=== PATIENT | male | born 1960 | race Caucasian/White ===

== ENCOUNTER 2016-06-21 16:23 | Emergency (ER) | payer OTHER ==
[~2016-06-21] VITALS: Wt 90.7 kg
[~2016-06-21 16:23] MED LIST: ASPIR-LOX325 MG PO; ASPIRIN ADULT L81 M1 PO; ATENOLOL25 MG PO; ATORVASTATIN CA40 M1 PO; B12,B-12,B 12500 MC1 PO; BACTROBAN2% TP; CLEOCIN HCL150 MG PO; COMPAZINE10 MG PO; FLAGYL500 MG; GLUCOTROL XL2.5 MG PO; HYDROCODONE BIT1 T11 PO; KEFLEX500 MG PO; LISINOPRIL20 MG PO; METFORMIN1000 MG PO; METFORMIN500 MG PO; NEURONTIN300 MG PO; PLAVIX75 MG PO; TRICOR48 MG PO; VIBRAMYCIN100 MG PO; VICODIN 5/500 505 MG PO; VISTARIL50 MG PO; ZANTAC150 MG PO; ZOCOR20 MG PO; ZOFRAN ODT4 MG SL; ZOFRAN4 MG PO
[2016-06-21 17:14] LABS: BASO % 0.3 % (0.0-1.0); EOS # 0.1 10*3/uL (0.0-0.4); EOS % 1.8 % (1.0-4.0); HEMOGLOBIN 14.1 g/dl (14.0-18.0); LYMPH # 1.8 10*3/uL (1.3-4.4); LYMPH % 28.6 % (27.0-41.0); MEAN CELL VOLUME 97.9 fl (80.0-94.0); MEAN CORPUSCULAR HGB 32.9 pg (27.0-31.0); MEAN CORPUSCULAR HGB CONC 33.6 g/dl (33.0-37.0); MONO # 0.6 10*3/uL (0.1-1.0); MONO % 9.6 % (3.0-9.0); NEUT # 3.7 10*3/uL (2.3-7.9); NEUT % 59.4 % (47.0-73.0); PLATELET COUNT AUTOMATED 187 10*3/uL (130-400); RED BLOOD COUNT 4.29 10*6/uL (4.50-5.90); RED CELL DISTRI WIDTH 12.4 % (0-14.5); WHITE BLOOD COUNT 6.2 10*3/uL (4.8-10.8)
[2016-06-21 17:32] LABS: ALBUMIN 3.7 gm/dl (3.1-4.5); ALKALINE PHOSPHATASE 92 U/L (45-117); BILIRUBIN, TOTAL 0.5 mg/dl (0.2-1.0); BUN 9 mg/dl (7-24); CARBON DIOXIDE 28 mmol/L (21-32); CHLORIDE 108 mmol/L (98-107); EST GLOM FILT AFRICAN AMERICAN > 60 ml/min; GLUCOSE 142 mg/dL (65-99); SGOT/AST 10 IU/L (3-35); SGPT/ALT 28 U/L (12-78); SODIUM 143 mmol/L (136-145)
[2016-06-21] MEDS ORDERED: AUGMENTIN 875875 MG PO (17:57)
[2016-06-21] MEDS ORDERED: PREDNISONE20 M1 PO (17:57)
[2016-07-16] MEDS ORDERED: TAMIFLU 75MG CA75 MG PO (06:55)
[2016-07-16] MEDS ORDERED: Nystatin Cream15 GM T (06:55)
[2016-07-16] MEDS ORDERED: NORCO 5-325 TA1 EACH PO (06:57)
[2016-07-19] MEDS ORDERED: ZITHROMAX500 MG PO (20:50)
== END 2016-06-21 18:04 | disposition home or self-care (01) ==
LOC: ED 16:23
PROVIDERS: Nurse Practitioner Family
DX: J40 Bronchitis, not specified as acute or chronic (principal); F17.200 Nicotine dependence, unspecified, uncomplicated; E11.9 Type 2 diabetes mellitus without complications; Z95.5 Presence of coronary angioplasty implant and graft; Z90.49 Acquired absence of other specified parts of digestive tract; Z79.82 Long term (current) use of aspirin

== ENCOUNTER 2016-08-29 18:19 | Inpatient (IN) | payer OTHER ==
[~2016-08-29] VITALS: Ht 198.1 cm; Wt 88.6 kg
--- NOTE | ~2016-08-29 | O ---
[place], [place] OPERATIVE NOTE NAME: [facility]Y DOBBINS [facility] [id number] UNIT #: [id number] ROOM: [facility] DOCTOR: JET KHAN DPM BIRTHDATE: [birth year] DOS: 08/31/2016 PREOPERATIVE DIAGNOSES: Abscess, first right MPJ, right foot with possible osteomyelitis. POSTOPERATIVE DIAGNOSES: Abscess, first right MPJ, right foot with possible osteomyelitis. Pending pathology. PROCEDURE: Incision and drainage, first right MPJ with bone biopsy. SURGEON: Jet Khan DPM. BUTTER FAT TESTER: None. SPECIMENS: Bone from proximal phalanx and tibial sesamoid, right foot. PACKIN.5 inch plain packing. BLOOD LOSS: Approximately 10 mL. ANESTHESIA: LMAC. PROCEDURE IN DETAIL: The patient was brought to the operating room, placed on the operating table in supine position. Anesthesia administered per Anesthesia Department. Local infiltration of 10 mL with 0.5% Marcaine plain was utilized for local block. The right lower extremity was prepped and draped in usual aseptic manner. No tourniquet was utilized during the procedure. There was an abscess noted to the plantar first right MPJ. There was an ulceration, which probed down to bone. A [place] elevator was inserted and a sinus tract was noted to extend distally along the plantar aspect of the right hallux. This was incised with a 15 blade to and through subcutaneous tissue level down to the bone. There was also a superficial pocket of purulent drainage noted at the distal most aspect of the incision, which was debrided with a rongeur. Upon incision of the first MPJ, there was noted to be an abscess with purulent bloody drainage which was cultured and sent for Gram stain, aerobic, anaerobic, acid fast and fungal cultures. The incision was also extended proximally approximately 1.5 cm with a 15 blade down to the level of the bone. At this time, Jamshidi was utilized to obtain samples of the proximal phalanx of the right hallux and tibial sesamoid. Bone was sent for bone cultures including Gram stain, aerobic, anaerobic, acid fast and fungal cultures and separately to pathology to rule out osteomyelitis. The area was then copiously flushed with sterile saline with pulse irrigation. Next, a sterile compression dressing consisting of 0.5 inch plain packing, wet-to-dry dressing including 4 x 4s, ABD, Kerlix and Alvaro bandage. The patient tolerated the procedures and anesthesia well and left the OR with vital signs stable and neurovascular status intact. Capillary refill time was noted to be less than 1 second to all digits of the right foot. The patient will return to the nursing unit, resume previous orders. Orders were written to reinforce the dressing as needed, elevate the right leg, no weightbearing right leg. Apply ice 30 minutes per hour behind right knee while awake x 2 days. Resume orders per internal medicine, [place], [place] OPERATIVE NOTE NAME: DIONY DOBBINS UNIT #: [id number] ROOM: [facility] DOCTOR: JET KHAN DPM BIRTHDATE: [birth year] antibiotics per Infectious Disease. resumed per discussion of internal medicine starting tomorrow. The patient will be seen for dressing change tomorrow by Dr. Mon. JET KHAN DPM CM:OPRECORD:OPERATIVE NOTE 1533 05 JET KHAN DPM 08/31/161906 interface
--- NOTE | ~2016-08-29 | CON ---
[place], [place] REPORT OF CONSULTATION [id number] #: [id number] ROOM: 530 DOCTOR: KRISTEN CARDOSOKRYSTIN BIRTHDATE: [birth year] DOS: 08/30/2016 SUBJECTIVE: This patient is seen as consult for evaluation of cellulitis and diabetic ulcer of his right foot. I had been seeing the patient in the office and following the ulceration. The patient had missed his last few appointments and apparently went back to work against my advice. He has been on his foot more than he should and subsequently sustained an infection in the right foot. He states about 3 days ago, he started noticed redness and swelling in the foot and that on Tuesday, he started to have a fever and may be some chills. He did have an appointment with me on Tuesday that he missed. He states that his foot is feeling better since he has been in the hospital and his redness is decreased. He has had no fever while in the hospital according to the patient. PAST MEDICAL HISTORY: Positive for diabetes with diabetic neuropathy and chronic ulceration, right foot. MEDICATIONS: Vancomycin, Zosyn, gabapentin, Protonix, Lovenox, Zofran, [place]. ALLERGIES: No known drug allergies. OBJECTIVE: EXTREMITIES: Upon lower extremity physical examination, DP pedal pulses are palpable and PT pedal pulses are minimally decreased. Skin temperature is warm. CFT is less than 2 seconds to all digits. Sensation is decreased bilaterally. There is some pain noted to palpation at the right foot in the area of the first MPJ. The patient has a very small wound, plantar first metatarsal head measuring about 0.4 cm in diameter. There is a sinus tract down towards the first metatarsal head in sesamoid area. There is no expressible purulent drainage, no malodor. He does have erythema noted plantarly around the wound and then dorsally noted to the proximal metatarsals. I do not extend past to mid foot. At this time, there is increased temperature. There is no fluctuance or signs of abscess. Again, no expressible drainage is seen. DIAGNOSTIC DATA: He has had an MRI about a month ago that was negative. He had an arterial vascular study in the office that showed, I believe, triphasic pulses. ASSESSMENT: Infected diabetic foot ulcer, right foot, rule out osteomyelitis or possible abscess. PLAN: Consult is performed, ordered cultures of the right foot wound. ____ venous Doppler, which was negative. I will order an MRI of the right foot to rule out osteomyelitis or possible abscess, which I think is likely. We will continue IV antibiotics for now and see what Infectious Disease has to say. He may need long-term IVs if he has osteomyelitis. He is to stay off his foot. We will reevaluate him tomorrow. I told him ____ may possibly need surgery to open the area up and do a bone biopsy and he is at risk for amputation because of the infection. Thank you for the opportunity to take part in care of this patient. [place], [place] REPORT OF CONSULTATION NAME: DOBBINSDIONY UNIT #: [id number] ROOM: [facility] DOCTOR: KRYSTIN PETERSON DPM BIRTHDATE: [birth year] KRYSTIN PETERSON DPM CM:CONSTR:REPORT OF CONSULTATION 1054 08/30/16 1443 interface
--- NOTE | ~2016-08-29 | CON ---
[place], [place] REPORT OF CONSULTATION NAME[id number] UNIT #: [id number] ROOM: 530 DOCTOR: NERY LeivaMONA BIRTHDATE: [birth year] DOS: 09/01/2016 This is a HBO therapy consultation. HISTORY OF PRESENT ILLNESS: This is a 55-year-old male with a past medical history of type 2 diabetes, hypertension and hyperlipidemia, who had been following with Podiatry for approximately a month for a diabetic foot ulcer of his right foot, which apparently had been doing well and improving with the wound care until he had noticed increased redness and pain and swelling of the foot, progressing all the way up to his leg. This was noted 2 days before admission where he had felt chills and could not get warm. He does have a history of neuropathy. The patient was admitted to the Emergency Room Department for a diabetic foot infection, cellulitis and he was seen by Podiatry, had an MRI done, which did show progressive inflammation in the region of the plantar ulcer at the level of the first MTP joint with interval evolution of osteomyelitis of the tibial sesamoid and proximal phalanx of the great toe, possibly involving the distal phalanx of the great toe as well. There was atrophy of the intrinsic muscles of the foot also noted. The patient underwent operative incision and drainage of the first right MPJ with bone biopsy. This was done by Dr. Barrow yesterday as well as bone biopsy. PAST MEDICAL HISTORY: Significant for the following, coronary artery disease, he is status post ND in 2003, he said he had a stent placed and he has not had any problems with his heart as far as he knows since that time. PAST MEDICAL HISTORY: History of diverticulitis, essential hypertension, hyperlipidemia and nonalcoholic fatty liver disease. PAST SURGICAL PROBLEMS: Appendectomy, cardiac cath, heart stent. SOCIAL HISTORY: He does not drink. He does not use illicit drugs. He does smoke 2 packs per day, but has not smoked for about a week now, he has smoked for at least 20 years that he is aware of. ALLERGIES: None. FAMILY HISTORY: Significant for lung cancer in his father and lymphoma in his mother. CURRENT MEDICATIONS: As follows: He is on vancomycin 1250 q. 8 hours. He is on Lipitor 40 p.o. daily, lisinopril 20 daily, vitamin B12 500 mcg daily, Plavix 75 daily, atenolol 25 daily, aspirin 81 daily, Lovenox 40 subq daily, Protonix 40 mg daily, Neurontin 300 q. 8 hours., Nicoderm 21 mg topically, Restoril, Zofran, and morphine p.r.n. REVIEW OF SYSTEMS: He said he was able to notice that when they change his dressing today that his foot was much less swollen and the redness is gone way down and he is feeling a whole lot better. He denies any fevers or chills today. No shortness of breath, chest pains, nausea, vomiting or diarrhea. He does not have any complaints regarding any history of a seizure disorder and [place], [place] REPORT OF CONSULTATION NAME: DIONY DOBBINS UNIT #: [id number] ROOM: [facility] DOCTOR: MONA GABRIEL M.D. BIRTHDATE: [birth year] offers no other specific complaints. PHYSICAL EXAMINATION: VITAL SIGNS: Temperature 98.5, pulse is 57, respirations 20, blood pressure is 94/64. GENERAL: This is an alert male in no acute distress. NECK: He has no JVD. LUNGS: Clear. CARDIOVASCULAR: S1, S2 regular rate and rhythm. Soft systolic murmur appreciable. ABDOMEN: Soft and nontender. EXTREMITIES: Has no edema. His right foot is wrapped in a dressing that is intact at this time. He did have a chest x-ray done which shows a well-positioned PICC line and no acute pulmonary process. He had a venous Doppler, which showed an enlarged right inguinal lymph node. LABORATORY DATA: Show a white count of 8.6, hemoglobin of 11.3 and platelets of 241, ESR is 108, glucose is 242, hemoglobin A1c is 9.2. BUN is 13, creatinine is 0.93. Cultures are all pending. ASSESSMENT AND PLAN: Diabetic foot ulcer, Herring stage III. The patient has had wound care for approximately a month and now it has progressed to a deeper infection with probable osteo according to the imaging studies. He has had bone debridement and cultures taken. He is currently on IV antibiotics, which have been ordered by the medical team. The patient is going to be discharged tomorrow. His nurse sane will be following him for his wound care. He wants to talk to his nurse sane regarding HBO. I believe he meets criteria for it at this point since he has had standard wound care for approximately a month now with now evidence of the deep tissue infection with osteomyelitis. He wants to talk with his nurse sane first regarding this therapy. I did explain to him that it is a time commitment, that is a daily treatment in that the patient wants to speak with his nurse sane first before deciding whether to pursue possible HBO therapy as adjuvant treatment for him. In addition, I did discuss with him about my recommendation to stop smoking. Thank you for this consult. MONA GABRIEL MD CM:CONSTR:REPORT OF CONSULTATION 1821 09/03/16 1552 interface
--- NOTE | ~2016-08-29 | PR ---
[place], [place] PROGRESS NOTE NAME: DIONY DOBBINS [facility] #: [id number] UNIT #: [id number] ROOM: 530 DOCTOR: KAYDEN MILLER III, DPM BIRTHDATE: [birth year] DOS: 09/01/2016 TIME OF DICTATION: 6:23 p.m. SUBJECTIVE: This patient is seen at bedside for followup and evaluation status post I and D of the right foot. The patient denies any fevers, chills, nausea, vomiting, chest pain, shortness of breath, calf pain, or thigh pain. OBJECTIVE: EXTREMITIES: Neurovascular status is unchanged. The patient has a healthy surgical incision site to the plantar aspect of his first metatarsal with no signs of infection or inflammation. Mild surrounding periwound erythema; however, again no signs of infection. NEUROLOGIC: Decreased protective sensation. ORTHOPEDICS: Muscle strength is maintained. Negative Homans', negative calf pain. ASSESSMENT: Status post I and D of the right foot - satisfactory progress. Treatment plans, recommendations, findings as well as prognosis were discussed in detail with the patient. All questions were answered to his apparent satisfaction. This patient seen at bedside for followup and reevaluation status post incision and drainage of the right foot. The patient is doing well with minimal complaints. Wound was flushed and repacked and redressed. The patient has a PICC line in place. He is set for discharge today. Follow up with Dr. Scott Perla on Tuesday for followup care. KAYDEN MILLER III, DPM CM:PNTRANS 1824 [id number] KAYDEN MILLER III, DPM 09/02/16 0513 interface
[~2016-08-29 18:19] MED LIST changes: +AUGMENTIN 875875 MG PO; +NORCO 5-325 TA1 EACH PO; +Nystatin Cream15 GM T; +PREDNISONE20 M1 PO; +TAMIFLU 75MG CA75 MG PO; +ZITHROMAX500 MG PO
[2016-08-29 18:20] VITALS: BP 145/65
[2016-08-29] MEDS ORDERED: AMMONIUM LACTA237 ML TP (18:21)
[2016-08-29 18:54] LABS: BASO % 0.3 % (0.0-1.0); EOS # 0.1 10*3/uL (0.0-0.4); EOS % 0.6 % (1.0-4.0); HEMATOCRIT 38.5 % (42.0-52.0); HEMOGLOBIN 13.1 g/dl (14.0-18.0); LYMPH # 1.7 10*3/uL (1.3-4.4); LYMPH % 16.1 % (27.0-41.0); MEAN CELL VOLUME 93.9 fl (80.0-94.0); MEAN PLATELET VOLUME 9.7 fl (9.6-12.3); MONO % 9.2 % (3.0-9.0); NEUT # 7.8 10*3/uL (2.3-7.9); NEUT % 73.5 % (47.0-73.0); PLATELET COUNT AUTOMATED 267 10*3/uL (130-400); RED CELL DISTRI WIDTH 11.8 % (0-14.5); WHITE BLOOD COUNT 10.6 10*3/uL (4.8-10.8)
[2016-08-29 19:05] LABS: INTERNATIONAL NORM RATIO 0.9 (2.0-3.5); PROTHROMBIN TIME 9.5 SECONDS (9.0-12.4)
[2016-08-29 19:09] LABS: ALBUMIN 3.4 gm/dl (3.1-4.5); ALKALINE PHOSPHATASE 106 U/L (45-117); BILIRUBIN, TOTAL 0.5 mg/dl (0.2-1.0); BUN 23 mg/dl (7-24); CARBON DIOXIDE 27 mmol/L (21-32); CHLORIDE 100 mmol/L (98-107); EST GLOM FILT AFRICAN AMERICAN > 60 ml/min; GLUCOSE 329 mg/dL (65-99); POTASSIUM 4.3 mmol/L (3.5-5.1); SGOT/AST 11 IU/L (3-35); SGPT/ALT 21 U/L (12-78); SODIUM 137 mmol/L (136-145)
[2016-08-29 20:00] VITALS: BP 132/57
[2016-08-30] VITALS: BP 132/61
[2016-08-30 07:10] LABS: BASO % 0.2 % (0.0-1.0); EOS # 0.1 10*3/uL (0.0-0.4); EOS % 0.7 % (1.0-4.0); HEMATOCRIT 33.4 % (42.0-52.0); HEMOGLOBIN 11.3 g/dl (14.0-18.0); IG # 0.1 10*3/uL (0.0-0.1); LYMPH # 2.1 10*3/uL (1.3-4.4); LYMPH % 22.7 % (27.0-41.0); MEAN CELL VOLUME 93.3 fl (80.0-94.0); MEAN CORPUSCULAR HGB 31.6 pg (27.0-31.0); MEAN CORPUSCULAR HGB CONC 33.8 g/dl (33.0-37.0); MEAN PLATELET VOLUME 9.9 fl (9.6-12.3); MONO # 0.8 10*3/uL (0.1-1.0); MONO % 8.9 % (3.0-9.0); NEUT # 6.2 10*3/uL (2.3-7.9); PLATELET COUNT AUTOMATED 235 10*3/uL (130-400); RED BLOOD COUNT 3.58 10*6/uL (4.50-5.90); RED CELL DISTRI WIDTH 11.6 % (0-14.5); WHITE BLOOD COUNT 9.2 10*3/uL (4.8-10.8)
[2016-08-30 07:33] LABS: HEMOGLOBIN A1c 9.2 % (4.8-5.6)
[2016-08-30 07:43] LABS: PROTHROMBIN TIME 10.3 SECONDS (9.0-12.4)
[2016-08-30 07:44] LABS: BUN 14 mg/dl (7-24); CARBON DIOXIDE 26 mmol/L (21-32); CHLORIDE 108 mmol/L (98-107); CHOLESTEROL 99 mg/dL (<200); EST GLOM FILT AFRICAN AMERICAN > 60 ml/min; GLUCOSE 216 mg/dL (65-99); HDL CHOLESTEROL 27 mg/dl (40-60); LDL CHOLESTEROL 54 mg/dL (9-159); POTASSIUM 4.1 mmol/L (3.5-5.1); SODIUM 140 mmol/L (136-145); TRIGLYCERIDES 91 mg/dl (<150); VLDL CHOLESTEROL 18 mg/dL (6-40)
[2016-08-30 08:00] VITALS: BP 110/55
[2016-08-30 08:08] LABS: FOLIC ACID 10.9 ng/mL (>5.38)
[2016-08-30 16:09] VITALS: BP 113/50
[2016-08-30 20:00] VITALS: BP 110/56
[2016-08-31] VITALS (9 sets, daily range): BP systolic 105–125; BP diastolic 42–82
[2016-08-31 06:06] LABS: BASO % 0.3 % (0.0-1.0); EOS # 0.1 10*3/uL (0.0-0.4); EOS % 1.3 % (1.0-4.0); HEMATOCRIT 33.9 % (42.0-52.0); HEMOGLOBIN 11.3 g/dl (14.0-18.0); LYMPH % 23.1 % (27.0-41.0); MEAN CORPUSCULAR HGB 31.7 pg (27.0-31.0); MEAN CORPUSCULAR HGB CONC 33.3 g/dl (33.0-37.0); MEAN PLATELET VOLUME 9.5 fl (9.6-12.3); MONO # 0.8 10*3/uL (0.1-1.0); MONO % 9.4 % (3.0-9.0); NEUT # 5.7 10*3/uL (2.3-7.9); NEUT % 65.6 % (47.0-73.0); PLATELET COUNT AUTOMATED 241 10*3/uL (130-400); RED BLOOD COUNT 3.57 10*6/uL (4.50-5.90); RED CELL DISTRI WIDTH 11.5 % (0-14.5); WHITE BLOOD COUNT 8.6 10*3/uL (4.8-10.8)
[2016-08-31 06:35] LABS: INTERNATIONAL NORM RATIO 0.9 (2.0-3.5)
[2016-08-31 06:37] LABS: BUN 13 mg/dl (7-24); C-REACTIVE PROTEIN 7.62 MG/DL (0-0.3); CARBON DIOXIDE 26 mmol/L (21-32); CHLORIDE 105 mmol/L (98-107); EST GLOM FILT AFRICAN AMERICAN > 60 ml/min; GLUCOSE 242 mg/dL (65-99); POTASSIUM 4.3 mmol/L (3.5-5.1); SODIUM 139 mmol/L (136-145)
[2016-09-01] VITALS: BP 107/46
[2016-09-01 08:00] VITALS: BP 108/56
[2016-09-01 12:00] VITALS: BP 106/50
[2016-09-01] MEDS ORDERED: KROGER NIC21 MG/24 H T (13:23)
[2016-09-01] MEDS ORDERED: METFORMIN1000 MG PO (13:23)
[2016-09-01] MEDS ORDERED: VANCO 1.251.25 GM/25 IV (13:28)
[2016-09-01 16:00] VITALS: BP 94/64
[2016-09-01 20:00] VITALS: BP 116/62
[2016-09-02] VITALS: BP 113/55
[2016-09-02 06:01] LABS: BASO % 0.7 % (0.0-1.0); EOS # 0.2 10*3/uL (0.0-0.4); HEMATOCRIT 32.4 % (42.0-52.0); HEMOGLOBIN 11.1 g/dl (14.0-18.0); LYMPH # 1.5 10*3/uL (1.3-4.4); LYMPH % 26.7 % (27.0-41.0); MEAN CELL VOLUME 94.5 fl (80.0-94.0); MEAN CORPUSCULAR HGB 32.4 pg (27.0-31.0); MEAN CORPUSCULAR HGB CONC 34.3 g/dl (33.0-37.0); MONO # 0.7 10*3/uL (0.1-1.0); MONO % 11.7 % (3.0-9.0); NEUT # 3.3 10*3/uL (2.3-7.9); NEUT % 57.6 % (47.0-73.0); PLATELET COUNT AUTOMATED 249 10*3/uL (130-400); RED BLOOD COUNT 3.43 10*6/uL (4.50-5.90); RED CELL DISTRI WIDTH 11.7 % (0-14.5); WHITE BLOOD COUNT 5.7 10*3/uL (4.8-10.8)
[2016-09-02 06:34] LABS: BUN 14 mg/dl (7-24); EST GLOM FILT AFRICAN AMERICAN > 60 ml/min
[2016-09-02 08:00] VITALS: BP 125/44
[2016-09-02 16:14] LABS: ACID FAST SPEC PROCESSING Tissue Grinding (.)
== END 2016-09-02 11:18 | disposition home health service (06) | DRG 478 ==
LOC: ED 18:19 → EDHOLD 18:41 → 5E 18:41
PROVIDERS: Family Medicine; Internal Medicine; Physician Assistant; Podiatrist
PROC: 0QBQ0ZX Excision of Right Toe Phalanx, Open Approach, Diagnostic (ICD-10-PCS; principal; 2016-08-31)
PROC: 02HV33Z Insertion of Infusion Device into Superior Vena Cava, Percutaneous Approach (ICD-10-PCS; principal; 2016-08-31)
PROC: 0Y9M0ZZ Drainage of Right Foot, Open Approach (ICD-10-PCS; 2016-08-31)
DX: M86.171 Other acute osteomyelitis, right ankle and foot (principal); E44.1 Mild protein-calorie malnutrition; E11.40 Type 2 diabetes mellitus with diabetic neuropathy, unspecified; E11.621 Type 2 diabetes mellitus with foot ulcer; E11.69 Type 2 diabetes mellitus with other specified complication; K76.0 Fatty (change of) liver, not elsewhere classified; I25.10 Atherosclerotic heart disease of native coronary artery without angina pectoris; L97.519 Non-pressure chronic ulcer of other part of right foot with unspecified severity; E11.65 Type 2 diabetes mellitus with hyperglycemia; D64.9 Anemia, unspecified; I10 Essential (primary) hypertension; E78.5 Hyperlipidemia, unspecified; F17.210 Nicotine dependence, cigarettes, uncomplicated; Z68.22 Body mass index [BMI] 22.0-22.9, adult; I25.2 Old myocardial infarction; Z95.5 Presence of coronary angioplasty implant and graft; Z79.02 Long term (current) use of antithrombotics/antiplatelets; Z79.4 Long term (current) use of insulin; Z79.82 Long term (current) use of aspirin; Z79.899 Other long term (current) drug therapy; Z90.49 Acquired absence of other specified parts of digestive tract; Z80.7 Family history of other malignant neoplasms of lymphoid, hematopoietic and related tissues; Z80.1 Family history of malignant neoplasm of trachea, bronchus and lung; Z83.3 Family history of diabetes mellitus; Z82.49 Family history of ischemic heart disease and other diseases of the circulatory system

== ENCOUNTER 2016-09-12 18:51 | Emergency (ER) | payer OTHER ==
[~2016-09-12] VITALS: Wt 86.2 kg
[~2016-09-12 18:51] MED LIST changes: +AMMONIUM LACTA237 ML TP; +KROGER NIC21 MG/24 H T; +VANCO 1.251.25 GM/25 IV
[2016-09-12] MEDS ORDERED: NAPROSYN500 MG PO (19:29)
== END 2016-09-12 19:31 | disposition home or self-care (01) ==
LOC: ED 18:51
DX: R59.1 Generalized enlarged lymph nodes (principal); F17.200 Nicotine dependence, unspecified, uncomplicated; Z90.49 Acquired absence of other specified parts of digestive tract; Z95.5 Presence of coronary angioplasty implant and graft; Z79.82 Long term (current) use of aspirin

== ENCOUNTER → 2016-09-29 | Day surgery (SDC) | payer OTHER ==
[~2016-09-29] MED LIST changes: +NAPROSYN500 MG PO
== END | disposition home or self-care (01) ==
LOC: SDC 11:00
DX: Z45.2 Encounter for adjustment and management of vascular access device (principal)

== ENCOUNTER → 2016-10-20 | Outpatient (CLI) | payer OTHER | END | disposition home or self-care (01) | LOC: LAB 13:32 | DX: M86.9 Osteomyelitis, unspecified (principal) ==

== ENCOUNTER 2016-11-10 19:08 | Emergency (ER) | payer OTHER ==
[~2016-11-10] VITALS: Ht 195.5 cm; Wt 83.9 kg
[2016-11-10] MEDS ORDERED: INVOKANA100 M1 PO (19:24)
[2016-11-10] MEDS ORDERED: CLINDAMYCIN HC300 MG PO (20:13)
== END 2016-11-10 20:39 | disposition home or self-care (01) ==
LOC: ED 19:08
DX: L03.115 Cellulitis of right lower limb (principal); F17.200 Nicotine dependence, unspecified, uncomplicated; Z79.899 Other long term (current) drug therapy; Z79.82 Long term (current) use of aspirin

== ENCOUNTER 2016-12-01 17:25 | Inpatient (IN) | payer OTHER ==
[~2016-12-01] VITALS: Ht 195.6 cm; Wt 77.6 kg
[~2016-12-01 17:25] MED LIST changes: +CLINDAMYCIN HC300 MG PO; +INVOKANA100 M1 PO
[2016-12-01 17:34] VITALS: BP 111/53
[2016-12-01] MEDS ORDERED: FENOFIBRATE54 MG PO (17:37)
[2016-12-01 17:53] LABS: BASO % 0.5 % (0.0-1.0); EOS # 0.1 10*3/uL (0.0-0.4); EOS % 1.4 % (1.0-4.0); HEMATOCRIT 33.5 % (42.0-52.0); LYMPH # 1.9 10*3/uL (1.3-4.4); LYMPH % 28.9 % (27.0-41.0); MEAN CELL VOLUME 92.8 fl (80.0-94.0); MEAN CORPUSCULAR HGB 30.5 pg (27.0-31.0); MEAN CORPUSCULAR HGB CONC 32.8 g/dl (33.0-37.0); MEAN PLATELET VOLUME 9.9 fl (9.6-12.3); MONO # 0.6 10*3/uL (0.1-1.0); MONO % 8.6 % (3.0-9.0); NEUT % 60.4 % (47.0-73.0); PLATELET COUNT AUTOMATED 221 10*3/uL (130-400); RED BLOOD COUNT 3.61 10*6/uL (4.50-5.90); WHITE BLOOD COUNT 6.6 10*3/uL (4.8-10.8)
[2016-12-01 18:02] LABS: PROTHROMBIN TIME 10.2 SECONDS (9.0-12.4)
[2016-12-01 18:09] LABS: ALKALINE PHOSPHATASE 62 U/L (45-117); BILIRUBIN, TOTAL 0.1 mg/dl (0.2-1.0); BUN 26 mg/dl (7-24); CARBON DIOXIDE 22 mmol/L (21-32); EST GLOM FILT AFRICAN AMERICAN > 60 ml/min; GLUCOSE 102 mg/dL (65-99); SGOT/AST 9 IU/L (3-35); SGPT/ALT 11 U/L (12-78); TOTAL PROTEIN 7.2 gm/dL (6.4-8.2)
[2016-12-01 18:16] LABS: CHLORIDE 111 mmol/L (98-107); POTASSIUM 3.9 mmol/L (3.5-5.1); SODIUM 142 mmol/L (136-145)
[2016-12-01 18:26] VITALS: BP 92/53
[2016-12-01 18:57] VITALS: BP 100/53
[2016-12-01 19:48] VITALS: BP 102/55
[2016-12-01 20:35] VITALS: BP 118/61
[2016-12-02] VITALS: BP 105/52
[2016-12-02 00:42] VITALS: BP 105/52
[2016-12-02 05:45] LABS: BASO % 0.4 % (0.0-1.0); EOS # 0.1 10*3/uL (0.0-0.4); EOS % 1.4 % (1.0-4.0); HEMATOCRIT 31.6 % (42.0-52.0); HEMOGLOBIN 10.2 g/dl (14.0-18.0); LYMPH # 1.9 10*3/uL (1.3-4.4); LYMPH % 25.4 % (27.0-41.0); MEAN CELL VOLUME 93.8 fl (80.0-94.0); MEAN CORPUSCULAR HGB 30.3 pg (27.0-31.0); MEAN CORPUSCULAR HGB CONC 32.3 g/dl (33.0-37.0); MEAN PLATELET VOLUME 10.4 fl (9.6-12.3); MONO # 0.6 10*3/uL (0.1-1.0); MONO % 8.7 % (3.0-9.0); NEUT # 4.7 10*3/uL (2.3-7.9); PLATELET COUNT AUTOMATED 211 10*3/uL (130-400); RED BLOOD COUNT 3.37 10*6/uL (4.50-5.90); RED CELL DISTRI WIDTH 14.1 % (0-14.5); WHITE BLOOD COUNT 7.3 10*3/uL (4.8-10.8)
[2016-12-02 05:50] LABS: BUN 18 mg/dl (7-24); CARBON DIOXIDE 25 mmol/L (21-32); CHLORIDE 112 mmol/L (98-107); CHOLESTEROL 112 mg/dL (<200); EST GLOM FILT AFRICAN AMERICAN > 60 ml/min; FREE T4 1.08 ng/dl (0.76-1.46); GLUCOSE 84 mg/dL (65-99); HDL CHOLESTEROL 27 mg/dl (40-60); LDL CHOLESTEROL 63 mg/dL (9-159); MAGNESIUM 1.5 mg/dL (1.5-2.1); POTASSIUM 4.2 mmol/L (3.5-5.1); SODIUM 148 mmol/L (136-145); TRIGLYCERIDES 112 mg/dl (<150); VLDL CHOLESTEROL 22 mg/dL (6-40)
[2016-12-02 07:09] LABS: FOLIC ACID 12.97 ng/mL (>5.38); VITAMIN D, 25-HYDROXY 20.9 ng/mL (30-100)
[2016-12-02 07:12] LABS: HEMOGLOBIN A1c 6.8 % (4.8-5.6)
[2016-12-02 08:00] VITALS: BP 112/50
== END 2016-12-02 12:45 | disposition left against medical advice (07) | DRG 917 ==
LOC: ED 17:25 → 4E 18:34 → EDHOLD 18:34 → 4E 20:10
PROVIDERS: Internal Medicine Hospice and Palliative Medicine; Nurse Practitioner Family
DX: T46.4X1A Poisoning by angiotensin-converting-enzyme inhibitors, accidental (unintentional), initial encounter (principal); N17.0 Acute kidney failure with tubular necrosis; E44.1 Mild protein-calorie malnutrition; G62.9 Polyneuropathy, unspecified; E87.8 Other disorders of electrolyte and fluid balance, not elsewhere classified; R00.1 Bradycardia, unspecified; I10 Essential (primary) hypertension; E11.65 Type 2 diabetes mellitus with hyperglycemia; F17.210 Nicotine dependence, cigarettes, uncomplicated; I25.10 Atherosclerotic heart disease of native coronary artery without angina pectoris; E78.2 Mixed hyperlipidemia; D64.9 Anemia, unspecified; Z53.21 Procedure and treatment not carried out due to patient leaving prior to being seen by health care provider; E11.40 Type 2 diabetes mellitus with diabetic neuropathy, unspecified; E86.0 Dehydration; T44.7X1A Poisoning by beta-adrenoreceptor antagonists, accidental (unintentional), initial encounter; Y92.89 Other specified places as the place of occurrence of the external cause; Z79.82 Long term (current) use of aspirin; Z79.84 Long term (current) use of oral hypoglycemic drugs; Z79.899 Other long term (current) drug therapy; Z90.49 Acquired absence of other specified parts of digestive tract; Z95.5 Presence of coronary angioplasty implant and graft; Z68.21 Body mass index [BMI] 21.0-21.9, adult; Z80.1 Family history of malignant neoplasm of trachea, bronchus and lung; Z80.8 Family history of malignant neoplasm of other organs or systems

== ENCOUNTER 2016-12-11 10:11 | Inpatient (IN) | payer OTHER ==
[~2016-12-11] VITALS: Ht 195.6 cm; Wt 76.2 kg
[~2016-12-11 10:11] MED LIST changes: +FENOFIBRATE54 MG PO
[2016-12-11 10:15] VITALS: BP 128/58
[2016-12-11] MEDS ORDERED: DOXYCYCLINE100 M3 PO (10:16)
[2016-12-11 10:36] VITALS: BP 130/63
[2016-12-11 10:42] LABS: BASO % 0.5 % (0.0-1.0); EOS # 0.1 10*3/uL (0.0-0.4); EOS % 1.6 % (1.0-4.0); HEMOGLOBIN 12.6 g/dl (14.0-18.0); LYMPH % 26.8 % (27.0-41.0); MEAN CELL VOLUME 93.8 fl (80.0-94.0); MEAN CORPUSCULAR HGB 30.3 pg (27.0-31.0); MEAN CORPUSCULAR HGB CONC 32.3 g/dl (33.0-37.0); MEAN PLATELET VOLUME 9.5 fl (9.6-12.3); MONO # 0.5 10*3/uL (0.1-1.0); MONO % 6.6 % (3.0-9.0); NEUT # 4.7 10*3/uL (2.3-7.9); NEUT % 64.2 % (47.0-73.0); PLATELET COUNT AUTOMATED 319 10*3/uL (130-400); RED BLOOD COUNT 4.16 10*6/uL (4.50-5.90); RED CELL DISTRI WIDTH 14.4 % (0-14.5); WHITE BLOOD COUNT 7.4 10*3/uL (4.8-10.8)
[2016-12-11 10:56] LABS: ALBUMIN 3.5 gm/dl (3.1-4.5); ALKALINE PHOSPHATASE 68 U/L (45-117); BILIRUBIN, TOTAL 0.3 mg/dl (0.2-1.0); BUN 15 mg/dl (7-24); CARBON DIOXIDE 25 mmol/L (21-32); CHLORIDE 109 mmol/L (98-107); EST GLOM FILT AFRICAN AMERICAN > 60 ml/min; GLUCOSE 98 mg/dL (65-99); POTASSIUM 4.1 mmol/L (3.5-5.1); SGOT/AST 13 IU/L (3-35); SGPT/ALT 16 U/L (12-78); SODIUM 143 mmol/L (136-145); TOTAL PROTEIN 8.6 gm/dL (6.4-8.2)
[2016-12-11 13:14] VITALS: BP 128/70
[2016-12-11 13:30] VITALS: BP 111/48
[2016-12-11] MEDS ORDERED: VITAMIN B121000 MC1 PO (15:03)
[2016-12-11] MEDS ORDERED: NEURONTIN300 MG PO (15:04)
[2016-12-11 16:00] VITALS: BP 112/46
[2016-12-11 20:00] VITALS: BP 116/52
[2016-12-12] VITALS: BP 98/58
[2016-12-12 06:21] LABS: BASO % 0.7 % (0.0-1.0); EOS # 0.2 10*3/uL (0.0-0.4); EOS % 3.1 % (1.0-4.0); LYMPH # 0.9 10*3/uL (1.3-4.4); LYMPH % 15.7 % (27.0-41.0); MEAN CELL VOLUME 93.5 fl (80.0-94.0); MEAN CORPUSCULAR HGB 29.5 pg (27.0-31.0); MEAN CORPUSCULAR HGB CONC 31.5 g/dl (33.0-37.0); MONO # 0.5 10*3/uL (0.1-1.0); MONO % 9.2 % (3.0-9.0); NEUT # 4.1 10*3/uL (2.3-7.9); NEUT % 71.1 % (47.0-73.0); PLATELET COUNT AUTOMATED 254 10*3/uL (130-400); RED BLOOD COUNT 3.53 10*6/uL (4.50-5.90); RED CELL DISTRI WIDTH 14.5 % (0-14.5); WHITE BLOOD COUNT 5.8 10*3/uL (4.8-10.8)
[2016-12-12 06:26] LABS: HEMOGLOBIN 10.4 g/dl (14.0-18.0)
[2016-12-12 06:51] LABS: BUN 16 mg/dl (7-24); CARBON DIOXIDE 26 mmol/L (21-32); CHLORIDE 110 mmol/L (98-107); EST GLOM FILT AFRICAN AMERICAN > 60 ml/min; GLUCOSE 80 mg/dL (65-99); SODIUM 145 mmol/L (136-145)
[2016-12-12 06:56] LABS: PROTHROMBIN TIME 10.7 SECONDS (9.0-12.4)
[2016-12-12 08:00] VITALS: BP 98/56
[2016-12-12 12:00] VITALS: BP 92/50
[2016-12-12 16:00] VITALS: BP 92/54
== END 2016-12-12 19:05 | disposition left against medical advice (07) | DRG 638 ==
LOC: ED 10:11 → 5E 12:34 → EDHOLD 12:34 → 5E 13:15
PROVIDERS: Internal Medicine; Registered Nurse
DX: E11.621 Type 2 diabetes mellitus with foot ulcer (principal); M86.9 Osteomyelitis, unspecified; E87.8 Other disorders of electrolyte and fluid balance, not elsewhere classified; E11.69 Type 2 diabetes mellitus with other specified complication; K76.0 Fatty (change of) liver, not elsewhere classified; L97.519 Non-pressure chronic ulcer of other part of right foot with unspecified severity; Z53.21 Procedure and treatment not carried out due to patient leaving prior to being seen by health care provider; D64.9 Anemia, unspecified; F17.210 Nicotine dependence, cigarettes, uncomplicated; I25.10 Atherosclerotic heart disease of native coronary artery without angina pectoris; I10 Essential (primary) hypertension; E78.5 Hyperlipidemia, unspecified; Z90.49 Acquired absence of other specified parts of digestive tract; Z95.5 Presence of coronary angioplasty implant and graft; Z80.1 Family history of malignant neoplasm of trachea, bronchus and lung; Z79.4 Long term (current) use of insulin; Z80.9 Family history of malignant neoplasm, unspecified; Z71.6 Tobacco abuse counseling; Z79.82 Long term (current) use of aspirin; Z79.84 Long term (current) use of oral hypoglycemic drugs; Z79.2 Long term (current) use of antibiotics; Z79.899 Other long term (current) drug therapy; Z83.3 Family history of diabetes mellitus; Z82.49 Family history of ischemic heart disease and other diseases of the circulatory system

== ENCOUNTER 2016-12-13 15:31 | Inpatient (IN) | payer OTHER ==
[~2016-12-13] VITALS: Ht 195.5 cm; Wt 77.7 kg
[~2016-12-13 15:31] MED LIST changes: +DOXYCYCLINE100 M3 PO; +VITAMIN B121000 MC1 PO
[2016-12-13 15:37] VITALS: BP 126/60
[2016-12-13 16:35] LABS: BASO % 0.8 % (0.0-1.0); EOS # 0.2 10*3/uL (0.0-0.4); EOS % 4.6 % (1.0-4.0); HEMATOCRIT 35.6 % (42.0-52.0); HEMOGLOBIN 11.3 g/dl (14.0-18.0); LYMPH # 1.2 10*3/uL (1.3-4.4); LYMPH % 23.9 % (27.0-41.0); MEAN CELL VOLUME 93.9 fl (80.0-94.0); MEAN CORPUSCULAR HGB 29.8 pg (27.0-31.0); MEAN CORPUSCULAR HGB CONC 31.7 g/dl (33.0-37.0); MEAN PLATELET VOLUME 9.8 fl (9.6-12.3); MONO # 0.5 10*3/uL (0.1-1.0); NEUT # 2.9 10*3/uL (2.3-7.9); NEUT % 60.3 % (47.0-73.0); PLATELET COUNT AUTOMATED 272 10*3/uL (130-400); RED BLOOD COUNT 3.79 10*6/uL (4.50-5.90); RED CELL DISTRI WIDTH 14.5 % (0-14.5); WHITE BLOOD COUNT 4.8 10*3/uL (4.8-10.8)
[2016-12-13 16:49] LABS: ALBUMIN 3.2 gm/dl (3.1-4.5); ALKALINE PHOSPHATASE 70 U/L (45-117); BILIRUBIN, TOTAL 0.2 mg/dl (0.2-1.0); BUN 15 mg/dl (7-24); CARBON DIOXIDE 24 mmol/L (21-32); CHLORIDE 109 mmol/L (98-107); EST GLOM FILT AFRICAN AMERICAN > 60 ml/min; GLUCOSE 95 mg/dL (65-99); POTASSIUM 4.2 mmol/L (3.5-5.1); SGOT/AST 15 IU/L (3-35); SGPT/ALT 23 U/L (12-78); SODIUM 144 mmol/L (136-145)
[2016-12-13 18:10] VITALS: BP 106/49
[2016-12-13 20:00] VITALS: BP 111/45
[2016-12-14] VITALS: BP 103/51
[2016-12-14 06:11] LABS: BASO % 0.8 % (0.0-1.0); EOS # 0.2 10*3/uL (0.0-0.4); EOS % 3.4 % (1.0-4.0); HEMATOCRIT 33.2 % (42.0-52.0); HEMOGLOBIN 10.6 g/dl (14.0-18.0); LYMPH # 1.4 10*3/uL (1.3-4.4); LYMPH % 27.9 % (27.0-41.0); MEAN CELL VOLUME 94.3 fl (80.0-94.0); MEAN CORPUSCULAR HGB 30.1 pg (27.0-31.0); MEAN CORPUSCULAR HGB CONC 31.9 g/dl (33.0-37.0); MEAN PLATELET VOLUME 9.5 fl (9.6-12.3); MONO # 0.7 10*3/uL (0.1-1.0); MONO % 13.4 % (3.0-9.0); NEUT # 2.7 10*3/uL (2.3-7.9); NEUT % 54.3 % (47.0-73.0); PLATELET COUNT AUTOMATED 243 10*3/uL (130-400); RED BLOOD COUNT 3.52 10*6/uL (4.50-5.90); RED CELL DISTRI WIDTH 14.5 % (0-14.5); WHITE BLOOD COUNT 4.9 10*3/uL (4.8-10.8)
[2016-12-14 06:52] LABS: BUN 13 mg/dl (7-24); CARBON DIOXIDE 27 mmol/L (21-32); CHLORIDE 110 mmol/L (98-107); CHOLESTEROL 108 mg/dL (<200); EST GLOM FILT AFRICAN AMERICAN > 60 ml/min; GLUCOSE 83 mg/dL (65-99); POTASSIUM 4.7 mmol/L (3.5-5.1); SODIUM 145 mmol/L (136-145); TRIGLYCERIDES 93 mg/dl (<150); VLDL CHOLESTEROL 19 mg/dL (6-40)
[2016-12-14 06:55] LABS: HDL CHOLESTEROL 26 mg/dl (40-60); LDL CHOLESTEROL 63 mg/dL (9-159)
[2016-12-14 08:00] VITALS: BP 108/46
[2016-12-14 12:00] VITALS: BP 107/63
[2016-12-14 16:00] VITALS: BP 115/60
[2016-12-14 20:00] VITALS: BP 141/81
[2016-12-15] VITALS: BP 105/61
[2016-12-15 06:05] LABS: BASO % 0.7 % (0.0-1.0); EOS # 0.2 10*3/uL (0.0-0.4); HEMATOCRIT 33.4 % (42.0-52.0); HEMOGLOBIN 10.8 g/dl (14.0-18.0); LYMPH # 1.3 10*3/uL (1.3-4.4); LYMPH % 23.5 % (27.0-41.0); MEAN CELL VOLUME 92.8 fl (80.0-94.0); MEAN CORPUSCULAR HGB CONC 32.3 g/dl (33.0-37.0); MEAN PLATELET VOLUME 9.7 fl (9.6-12.3); MONO # 0.5 10*3/uL (0.1-1.0); MONO % 9.4 % (3.0-9.0); NEUT # 3.4 10*3/uL (2.3-7.9); NEUT % 63.2 % (47.0-73.0); PLATELET COUNT AUTOMATED 246 10*3/uL (130-400); RED CELL DISTRI WIDTH 14.4 % (0-14.5); WHITE BLOOD COUNT 5.4 10*3/uL (4.8-10.8)
[2016-12-15 06:29] LABS: BUN 16 mg/dl (7-24); CARBON DIOXIDE 27 mmol/L (21-32); CHLORIDE 110 mmol/L (98-107); EST GLOM FILT AFRICAN AMERICAN > 60 ml/min; GLUCOSE 85 mg/dL (65-99); SODIUM 143 mmol/L (136-145)
[2016-12-15 08:00] VITALS: BP 110/52
[2016-12-15 12:00] VITALS: BP 116/60
[2016-12-15] MEDS ORDERED: VANCO 1.51.5 GM/150 IV (12:51)
[2016-12-15 16:00] VITALS: BP 152/77
== END 2016-12-15 17:45 | disposition home health service (06) | DRG 638 ==
LOC: ED 15:31 → EDHOLD 17:11 → 5E 17:11
PROVIDERS: Internal Medicine; Registered Nurse
PROC: 02HV33Z Insertion of Infusion Device into Superior Vena Cava, Percutaneous Approach (ICD-10-PCS; principal; 2016-12-14)
DX: E11.621 Type 2 diabetes mellitus with foot ulcer (principal); M86.9 Osteomyelitis, unspecified; E11.40 Type 2 diabetes mellitus with diabetic neuropathy, unspecified; E44.0 Moderate protein-calorie malnutrition; I25.110 Atherosclerotic heart disease of native coronary artery with unstable angina pectoris; K76.0 Fatty (change of) liver, not elsewhere classified; E11.69 Type 2 diabetes mellitus with other specified complication; D64.9 Anemia, unspecified; I10 Essential (primary) hypertension; F17.210 Nicotine dependence, cigarettes, uncomplicated; L97.519 Non-pressure chronic ulcer of other part of right foot with unspecified severity; Z90.49 Acquired absence of other specified parts of digestive tract; Z95.5 Presence of coronary angioplasty implant and graft; Z80.1 Family history of malignant neoplasm of trachea, bronchus and lung; Z80.9 Family history of malignant neoplasm, unspecified; Z71.6 Tobacco abuse counseling; Z79.82 Long term (current) use of aspirin; Z79.2 Long term (current) use of antibiotics; Z79.899 Other long term (current) drug therapy; Z79.84 Long term (current) use of oral hypoglycemic drugs; Z79.4 Long term (current) use of insulin; Z68.20 Body mass index [BMI] 20.0-20.9, adult; I25.2 Old myocardial infarction; E78.5 Hyperlipidemia, unspecified

== ENCOUNTER 2017-05-05 22:15 | Emergency (ER) | payer OTHER ==
[~2017-05-05] VITALS: Ht 195.5 cm; Wt 79.8 kg
[~2017-05-05 22:15] MED LIST changes: +VANCO 1.51.5 GM/150 IV
== END 2017-05-05 23:03 | disposition home or self-care (01) ==
LOC: ED 22:15
DX: S90.821A Blister (nonthermal), right foot, initial encounter (principal); F17.210 Nicotine dependence, cigarettes, uncomplicated; Z88.6 Allergy status to analgesic agent; Z88.8 Allergy status to other drugs, medicaments and biological substances; Z79.84 Long term (current) use of oral hypoglycemic drugs; Z79.899 Other long term (current) drug therapy; Z90.49 Acquired absence of other specified parts of digestive tract; X58.XXXA Exposure to other specified factors, initial encounter; Y93.89 Activity, other specified; Y92.89 Other specified places as the place of occurrence of the external cause; Y99.8 Other external cause status

== ENCOUNTER 2017-07-19 16:52 | Emergency (ER) | payer OTHER ==
[~2017-07-19] VITALS: Wt 84.4 kg
[2017-07-19] MEDS ORDERED: SEPTDS PO (17:53)
[2017-07-19] MEDS ORDERED: CEPHALEXIN500 M1 PO (17:53)
== END 2017-07-19 18:04 | disposition home or self-care (01) ==
LOC: ED 16:52
DX: L84 Corns and callosities (principal); F17.200 Nicotine dependence, unspecified, uncomplicated; Z79.82 Long term (current) use of aspirin; Z79.899 Other long term (current) drug therapy

== ENCOUNTER 2017-10-04 18:42 | Emergency (ER) | payer OTHER ==
[~2017-10-04] VITALS: Ht 198.1 cm; Wt 84.8 kg
--- NOTE | ~2017-10-04 | EKG ---
[place], [place] ELECTROCARDIOGRAM REPORT NAME: DIONY DOBBINS UNIT #: [id number] ROOM: DOCTOR: DONALD LEE MD BIRTHDATE: [birth year] DOS: 10/04/2017 TIME: 1924 hours. FINDINGS: 1. Sinus bradycardia at 50 beats per minute. 2. Complete left bundle-branch block. 3. An abnormal ECG. 4. No previous tracing is available for comparison. DONALD LEE MD CM:EKGRPT:ELECTROCARDIOGRAM REPORT 1054 1133 DONALD LEE MD
[~2017-10-04 18:42] MED LIST changes: +CEPHALEXIN500 M1 PO; +SEPTDS PO
[2017-10-04 19:17] LABS: BASO % 0.4 % (0.0-1.0); EOS # 0.2 10*3/uL (0.0-0.4); EOS % 1.5 % (1.0-4.0); HEMATOCRIT 41.8 % (42.0-52.0); HEMOGLOBIN 13.6 g/dl (14.0-18.0); LYMPH # 1.9 10*3/uL (1.3-4.4); LYMPH % 17.9 % (27.0-41.0); MEAN CORPUSCULAR HGB 31.6 pg (27.0-31.0); MEAN CORPUSCULAR HGB CONC 32.5 g/dl (33.0-37.0); MEAN PLATELET VOLUME 10.1 fl (9.6-12.3); MONO % 9.8 % (3.0-9.0); NEUT # 7.3 10*3/uL (2.3-7.9); NEUT % 70.1 % (47.0-73.0); PLATELET COUNT AUTOMATED 173 10*3/uL (130-400); RED BLOOD COUNT 4.31 10*6/uL (4.50-5.90); WHITE BLOOD COUNT 10.3 10*3/uL (4.8-10.8)
[2017-10-04 19:27] LABS: INTERNATIONAL NORM RATIO 0.9 (2.0-3.5)
[2017-10-04 19:34] LABS: ALBUMIN 3.7 gm/dl (3.1-4.5); ALKALINE PHOSPHATASE 87 U/L (45-117); BUN 22 mg/dl (7-24); CHLORIDE 107 mmol/L (98-107); CREATININE 1.15 mg/dL (0.70-1.30); LIPASE 193 U/L (73-393); POTASSIUM 4.5 mmol/L (3.5-5.1); SGOT/AST 18 IU/L (3-35); SGPT/ALT 27 U/L (12-78); SODIUM 139 mmol/L (136-145); TOTAL PROTEIN 7.2 gm/dL (6.4-8.2)
[2017-10-04 19:35] LABS: TROPONIN I < 0.015 ng/ml (<0.045)
== END 2017-10-04 21:00 | disposition left against medical advice (07) ==
LOC: ED 18:42
PROVIDERS: Physician Assistant
DX: R42 Dizziness and giddiness (principal); R51 Headache; R11.0 Nausea; F17.200 Nicotine dependence, unspecified, uncomplicated; Z90.49 Acquired absence of other specified parts of digestive tract; Z95.5 Presence of coronary angioplasty implant and graft; Z98.890 Other specified postprocedural states; Z79.899 Other long term (current) drug therapy; Z79.82 Long term (current) use of aspirin

== ENCOUNTER 2017-11-03 16:53 | Emergency (ER) | payer OTHER ==
[~2017-11-03] VITALS: Ht 198.1 cm; Wt 86.2 kg
[2017-11-03] MEDS ORDERED: VIBRAMYCIN100 MG PO (17:15)
== END 2017-11-03 17:24 | disposition home or self-care (01) ==
LOC: ED 16:53
DX: S91.301A Unspecified open wound, right foot, initial encounter (principal); E11.621 Type 2 diabetes mellitus with foot ulcer; F17.200 Nicotine dependence, unspecified, uncomplicated; Z79.82 Long term (current) use of aspirin; Z79.899 Other long term (current) drug therapy; X58.XXXA Exposure to other specified factors, initial encounter; Y93.89 Activity, other specified; Y92.89 Other specified places as the place of occurrence of the external cause; Y99.8 Other external cause status

== ENCOUNTER 2017-12-04 17:20 | Emergency (ER) | payer OTHER ==
[~2017-12-04] VITALS: Ht 190.5 cm; Wt 90.7 kg
[2017-12-04] MEDS ORDERED: CLINDAMYCIN HC300 MG PO (18:09)
== END 2017-12-04 19:13 | disposition home or self-care (01) ==
LOC: ED 17:20
DX: L03.115 Cellulitis of right lower limb (principal); F17.200 Nicotine dependence, unspecified, uncomplicated; E11.9 Type 2 diabetes mellitus without complications; Z90.49 Acquired absence of other specified parts of digestive tract; Z98.890 Other specified postprocedural states; Z79.899 Other long term (current) drug therapy; Z79.82 Long term (current) use of aspirin

== ENCOUNTER 2018-02-26 11:44 | Emergency (ER) | payer OTHER ==
[~2018-02-26] VITALS: Ht 193 cm; Wt 95.3 kg
[2018-02-26 12:36] LABS: BASO % 0.4 % (0.0-1.0); EOS # 0.2 10*3/uL (0.0-0.4); EOS % 1.8 % (1.0-4.0); HEMOGLOBIN 14.6 g/dl (14.0-18.0); LYMPH # 1.6 10*3/uL (1.3-4.4); LYMPH % 18.9 % (27.0-41.0); MEAN CELL VOLUME 96.5 fl (80.0-94.0); MEAN CORPUSCULAR HGB CONC 33.2 g/dl (33.0-37.0); MONO % 11.4 % (3.0-9.0); NEUT # 5.7 10*3/uL (2.3-7.9); NEUT % 67.3 % (47.0-73.0); PLATELET COUNT AUTOMATED 179 10*3/uL (130-400); RED BLOOD COUNT 4.56 10*6/uL (4.50-5.90); WHITE BLOOD COUNT 8.5 10*3/uL (4.8-10.8)
[2018-02-26 12:53] LABS: ALBUMIN 3.9 gm/dl (3.1-4.5); ALKALINE PHOSPHATASE 98 U/L (45-117); BUN 17 mg/dl (7-24); CHLORIDE 108 mmol/L (98-107); POTASSIUM 4.2 mmol/L (3.5-5.1); SGOT/AST 15 IU/L (3-35); SGPT/ALT 22 U/L (12-78); SODIUM 141 mmol/L (136-145); TOTAL PROTEIN 7.7 gm/dL (6.4-8.2)
[2018-02-26] MEDS ORDERED: VIBRAMYCIN100 MG PO (13:33)
== END 2018-02-26 14:06 | disposition home or self-care (01) ==
LOC: ED 11:44
PROVIDERS: Nurse Practitioner Family
DX: L03.115 Cellulitis of right lower limb (principal); F17.200 Nicotine dependence, unspecified, uncomplicated; Z79.899 Other long term (current) drug therapy; Z79.82 Long term (current) use of aspirin

== ENCOUNTER → 2018-02-28 | Outpatient (CLI) | payer OTHER | END | disposition home or self-care (01) | LOC: WOUNDCARE 12:59 | DX: L97.512 Non-pressure chronic ulcer of other part of right foot with fat layer exposed (principal); L84 Corns and callosities; F17.290 Nicotine dependence, other tobacco product, uncomplicated ==

== ENCOUNTER → 2018-03-13 | Outpatient (CLI) | payer OTHER | END | disposition home or self-care (01) | LOC: US 03-02 17:00 | DX: I73.9 Peripheral vascular disease, unspecified (principal); I10 Essential (primary) hypertension; E11.9 Type 2 diabetes mellitus without complications ==

== ENCOUNTER 2018-06-21 14:30 | Inpatient (IN) | payer OTHER ==
[~2018-06-21] VITALS: Ht 198.1 cm; Wt 92.5 kg
--- NOTE | ~2018-06-21 | EKG ---
[place], [place] ELECTROCARDIOGRAM REPORT NAME: DIONY DOBBINS UNIT #: [id number] ROOM: 416 DOCTOR: HANNAH DRAFT REPORT BIRTHDATE: [birth year] [facility] Test Date: 2018-06-21 Test Time: 14:36:49 Pat Name: DIONY DOBBINS Department: Room: 416 Gender: M Burning Plant Operator: Dasia Walker : 1960 Requested By: SCOTTY MORRIS Order Number: [id number] Reading MD: Barry Templeton MD Measurements Intervals [place] Rate: 69 P: 66 GA: 155 QRS: -36 QRSD: 174 T: 106 QT: 465 QTc: 499 Interpretive Statements Sinus rhythm Probable left atrial enlargement Left bundle branch block Baseline wander in lead(s) II,III,aVF,V1 No previous ECG available for comparison Electronically Signed On 06-22-2018 16:15:49 PST by Barry Templeton MD CM:EKGRPT:ELECTROCARDIOGRAM REPORT 1436 1615 SCOTTY YOUNG DRAFT REPORT SCOTTY MORRIS MD
--- NOTE | ~2018-06-21 | EKG ---
[place], [place] ELECTROCARDIOGRAM REPORT NAME: DIONY DOBBINS UNIT #: [id number] ROOM: 416 DOCTOR: HANNAH DRAFT REPORT BIRTHDATE: [birth year] [facility] Test Date: 2018-06-21 Test Time: 17:40:58 Pat Name: DIONY DOBBINS Department: Room: 416 Gender: M Ribbing Machine Operator: Dasia Walker : 1960 Requested By: SCOTTY MORRIS Order Number: [id number] Reading MD: Barry Templeton MD Measurements Intervals [place] Rate: 58 P: 74 SD: 159 QRS: -42 QRSD: 168 T: 118 QT: 493 QTc: 485 Interpretive Statements Sinus rhythm Left bundle branch block No previous ECG available for comparison Electronically Signed On 06-22-2018 16:16:26 PST by Barry Templeton MD CM:EKGRPT:ELECTROCARDIOGRAM REPORT 1740 1616 SCOTTY YOUNG DRAFT REPORT SCOTTY MORRIS MD
--- NOTE | ~2018-06-21 | EKG ---
[place], [place] ELECTROCARDIOGRAM REPORT NAME: DIONY DOBBINS UNIT #: [id number] ROOM: 416 DOCTOR: HANNAH DRAFT REPORT BIRTHDATE: [birth year] [facility] Test Date: 2018-06-21 Test Time: 20:23:14 Pat Name: DIONY DOBBINS Department: Room: [facility] Gender: M Home Health Care Worker: CABRERA : 1960 Requested By: SCOTTY MORRIS Order Number: [id number] Reading MD: Barry Templeton MD Measurements Intervals [place] Rate: 52 P: 74 DE: 160 QRS: -40 QRSD: 170 T: 114 QT: 520 QTc: 484 Interpretive Statements Sinus rhythm Left bundle branch block Baseline wander in lead(s) V2 Electronically Signed On 06-22-2018 16:18:01 PST by Barry Templeton MD CM:EKGRPT:ELECTROCARDIOGRAM REPORT 22 1618 SCOTTY YOUNG DRAFT REPORT SCOTTY MORRIS MD
[2018-06-21 14:33] VITALS: BP 121/60
[2018-06-21 15:12] LABS: BASO % 0.4 % (0.0-1.0); EOS # 0.2 10*3/uL (0.0-0.4); EOS % 2.3 % (1.0-4.0); HEMATOCRIT 44.5 % (42.0-52.0); LYMPH # 1.9 10*3/uL (1.3-4.4); LYMPH % 23.8 % (27.0-41.0); MEAN CELL VOLUME 96.9 fl (80.0-94.0); MEAN CORPUSCULAR HGB 32.7 pg (27.0-31.0); MEAN CORPUSCULAR HGB CONC 33.7 g/dl (33.0-37.0); MEAN PLATELET VOLUME 10.2 fl (9.6-12.3); MONO # 0.6 10*3/uL (0.1-1.0); MONO % 7.4 % (3.0-9.0); NEUT # 5.2 10*3/uL (2.3-7.9); NEUT % 65.6 % (47.0-73.0); PLATELET COUNT AUTOMATED 166 10*3/uL (130-400); RED BLOOD COUNT 4.59 10*6/uL (4.50-5.90); RED CELL DISTRI WIDTH 12.3 % (0-14.5); WHITE BLOOD COUNT 7.9 10*3/uL (4.8-10.8)
[2018-06-21 15:21] LABS: ACT PARTIAL THROMBO TIME 24.4 SECONDS (20.8-31.5); INTERNATIONAL NORM RATIO 0.9 (2.0-3.5)
[2018-06-21 15:30] LABS: ALBUMIN 3.4 gm/dl (3.1-4.5); ALKALINE PHOSPHATASE 96 U/L (45-117); BUN 16 mg/dl (7-24); CHLORIDE 106 mmol/L (98-107); POTASSIUM 3.9 mmol/L (3.5-5.1); SGOT/AST 18 IU/L (3-35); SGPT/ALT 38 U/L (12-78); SODIUM 140 mmol/L (136-145); TOTAL PROTEIN 7.1 gm/dL (6.4-8.2); TROPONIN I 0.019 ng/ml (<0.045)
[2018-06-21 16:45] VITALS: BP 116/59
--- NOTE | 2018-06-21 16:47 | NUR ---
CALLOUS TO RT FOOT.
--- NOTE | 2018-06-21 17:42 | NUR ---
[facility] 57, admitted to , under the services of NAOMY Mak DO with a diagnosis of CHEST PAIN. Chief complaint is DENIES. Patient arrived via wheel chair from ER. Monitor applied. Initial assessment completed. Vital signs taken and recorded. NAOMY MAK DO notified of admission to the unit. Orders received. See assessment for past medical history, medications and allergies. Patient and/or family oriented to unit. [facility] visitation policy reviewed. Clothing/patient valuable form completed. VARSHA MONDRAGON
[2018-06-21 20:00] VITALS: BP 123/41
[2018-06-22] VITALS: BP 119/54
[2018-06-22 06:42] LABS: BASO # 0.1 10*3/uL (0.0-0.1); BASO % 0.6 % (0.0-1.0); EOS # 0.2 10*3/uL (0.0-0.4); EOS % 1.8 % (1.0-4.0); HEMATOCRIT 44.7 % (42.0-52.0); HEMOGLOBIN 14.5 g/dl (14.0-18.0); MEAN CELL VOLUME 97.6 fl (80.0-94.0); MEAN CORPUSCULAR HGB 31.7 pg (27.0-31.0); MEAN CORPUSCULAR HGB CONC 32.4 g/dl (33.0-37.0); MEAN PLATELET VOLUME 10.7 fl (9.6-12.3); MONO # 0.8 10*3/uL (0.1-1.0); MONO % 9.1 % (3.0-9.0); NEUT # 5.3 10*3/uL (2.3-7.9); PLATELET COUNT AUTOMATED 154 10*3/uL (130-400); RED BLOOD COUNT 4.58 10*6/uL (4.50-5.90); RED CELL DISTRI WIDTH 12.2 % (0-14.5); WHITE BLOOD COUNT 8.2 10*3/uL (4.8-10.8)
[2018-06-22 07:01] LABS: BUN 13 mg/dl (7-24); CHLORIDE 110 mmol/L (98-107); CHOLESTEROL 132 mg/dL (<200); CREATININE 0.92 mg/dL (0.70-1.30); HDL CHOLESTEROL 25 mg/dl (40-60); LDL CHOLESTEROL 53 mg/dL (9-159); PHOSPHOROUS 3.7 mg/dL (2.5-4.9); POTASSIUM 3.9 mmol/L (3.5-5.1); SODIUM 143 mmol/L (136-145); TRIGLYCERIDES 268 mg/dl (<150); VLDL CHOLESTEROL 54 mg/dL (6-40)
[2018-06-22 08:00] VITALS: BP 116/72
--- NOTE | 2018-06-22 08:00 | NUR ---
PT RESTING IN BED, NO DISTRESS NOTED. PT DENIES ANY COMPLAINTS, STATES HE FEELS MUCH BETTER, DENIES ANY CHEST PAIN OR SOB. LUNG SOUNDS CLEAR, ON ROOM AIR, TRACE EDEMA NOTED. CALL LIGHT WITHIN REACH.
[2018-06-22 08:08] LABS: VITAMIN D, 25-HYDROXY 17.5 ng/mL (30-100)
--- NOTE | 2018-06-22 08:45 | NUR ---
PT IS PLEASANT AND COOPERATIVE AND STATES THAT HE "IS FINE" NO COMPLAINTS OF CHEST PAIN, N/V, OR SOB AT THIS TIME. SITTING UP IN BED WAITING FOR BREAKFAST TRAY. WILL CONINUE TO MONITOR. LEORA TAFOYA
--- NOTE | 2018-06-22 09:00 | NUR ---
Meat Team Member in to talk to patient. Patient states lives at home with alone. There are few steps in the home. Physician: bethany cardozo [facility]: [facility] Home health services: none Patient's level of ADLs: INDEPENDENT Patient has working utilities: all working DME: none Follow-up physician's appointment after d/c: will be made by hospitalist nurse director upon discharge Does patient want to access PORTAL?: no Discharge plan discussed with patient, patient lives at home alone, is independent in adls and ambualtion, patient states he will be going home when able and denies any home needs. ANDREW VALENZUELA
--- NOTE | 2018-06-22 12:20 | NUR ---
JOURNEYMAN MACHINIST REMOVED BY PT. IV REMOVED- CATHETER INTACT, SITE ASYMPTOMATIC TOLERATED WELL. CONTINUES TO PACE IN HALLWAY, AMBULATES SELF WITH STEADY GAIT. LEORA TAFOYA
[2018-06-22 12:58] VITALS: BP 121/77
--- NOTE | 2018-06-22 13:00 | NUR ---
REPORT GIVEN TO BERNADETTE MANLEY. PT UP IN [facility]. WAITING FOR DISCHARGE.
[2018-06-22] MEDS ORDERED: VITAMIN D5000 UNI1 PO (13:06)
--- NOTE | 2018-06-22 13:31 | NUR ---
Discharge instructions reviewed with patient/family. Patient receptive and verbalizes understanding. Follow-up care arranged. Written instructions given to patient/family. IV site and quality assurance monitor body removed. BERNADETTE VENCES
[2018-09-02] MEDS ORDERED: NEURONTIN300 MG PO (17:22)
[2018-09-02] MEDS ORDERED: RENAL CAPS SOFTG1 MG PO (17:24)
[2018-09-05] MEDS ORDERED: VANCO 1 GR1 GM/250 M IV (09:05)
[2018-09-05] MEDS ORDERED: FLAGYL500 MG PO (09:05)
[2018-09-05] MEDS ORDERED: CEFTRIAXON2 GM/50 ML IV (09:05)
[2018-12-13] MEDS ORDERED: XARELTO10 MG PO (13:40)
[2018-12-13] MEDS ORDERED: CIPROFLOXACIN750 MG PO (13:41)
[2018-12-13] MEDS ORDERED: TRAMADOL HCL50 MG PO (13:41)
== END 2018-06-22 13:31 | disposition home or self-care (01) | DRG 313 ==
LOC: ED 14:30 → EDHOLD 16:42 → 4E 16:42
PROVIDERS: Emergency Medicine; Internal Medicine; ADMIT Internal Medicine
DX: R07.89 Other chest pain (principal); E53.8 Deficiency of other specified B group vitamins; I10 Essential (primary) hypertension; E78.5 Hyperlipidemia, unspecified; J01.40 Acute pansinusitis, unspecified; I25.118 Atherosclerotic heart disease of native coronary artery with other forms of angina pectoris; E11.65 Type 2 diabetes mellitus with hyperglycemia; E78.00 Pure hypercholesterolemia, unspecified; J44.9 Chronic obstructive pulmonary disease, unspecified; E11.40 Type 2 diabetes mellitus with diabetic neuropathy, unspecified; F17.210 Nicotine dependence, cigarettes, uncomplicated; E55.9 Vitamin D deficiency, unspecified; Z95.5 Presence of coronary angioplasty implant and graft; I25.2 Old myocardial infarction; Z71.6 Tobacco abuse counseling; Z90.49 Acquired absence of other specified parts of digestive tract; Z80.7 Family history of other malignant neoplasms of lymphoid, hematopoietic and related tissues; Z80.1 Family history of malignant neoplasm of trachea, bronchus and lung; Z79.82 Long term (current) use of aspirin; Z79.899 Other long term (current) drug therapy; Z79.02 Long term (current) use of antithrombotics/antiplatelets; Z83.3 Family history of diabetes mellitus; Z82.49 Family history of ischemic heart disease and other diseases of the circulatory system

== ENCOUNTER 2018-10-27 09:49 | Emergency (ER) | payer OTHER ==
[~2018-10-27] VITALS: Ht 198.1 cm; Wt 92.5 kg
[~2018-10-27 09:49] MED LIST changes: +CEFTRIAXON2 GM/50 ML IV; +FLAGYL500 MG PO; +RENAL CAPS SOFTG1 MG PO; +VANCO 1 GR1 GM/250 M IV; +VITAMIN D5000 UNI1 PO
[2018-10-27] MEDS ORDERED: PREDNISONE20 M1 PO (10:02)
[2018-12-13] MEDS ORDERED: XARELTO10 MG PO (13:40)
[2018-12-13] MEDS ORDERED: CIPROFLOXACIN750 MG PO (13:41)
[2018-12-13] MEDS ORDERED: TRAMADOL HCL50 MG PO (13:41)
== END 2018-10-27 10:15 | disposition home or self-care (01) ==
LOC: ED 09:49
DX: L23.7 Allergic contact dermatitis due to plants, except food (principal); Z79.84 Long term (current) use of oral hypoglycemic drugs; Z79.2 Long term (current) use of antibiotics; Z79.899 Other long term (current) drug therapy; Z79.82 Long term (current) use of aspirin

== ENCOUNTER → 2018-12-13 | Day surgery (SDC) | payer OTHER ==
[2018-12-11 14:31] LABS: BASO % 0.4 % (0.0-1.0); EOS # 0.1 10*3/uL (0.0-0.4); EOS % 1.5 % (1.0-4.0); HEMATOCRIT 41.1 % (42.0-52.0); HEMOGLOBIN 13.6 g/dl (14.0-18.0); MEAN CELL VOLUME 95.4 fl (80.0-94.0); MEAN CORPUSCULAR HGB 31.6 pg (27.0-31.0); MEAN CORPUSCULAR HGB CONC 33.1 g/dl (33.0-37.0); MEAN PLATELET VOLUME 10.5 fl (9.6-12.3); MONO # 0.6 10*3/uL (0.1-1.0); MONO % 8.1 % (3.0-9.0); NEUT # 4.7 10*3/uL (2.3-7.9); NEUT % 62.9 % (47.0-73.0); PLATELET COUNT AUTOMATED 171 10*3/uL (130-400); RED BLOOD COUNT 4.31 10*6/uL (4.50-5.90); RED CELL DISTRI WIDTH 12.3 % (0-14.5); WHITE BLOOD COUNT 7.4 10*3/uL (4.8-10.8)
[2018-12-11 15:00] LABS: BUN 17 mg/dl (7-24); CHLORIDE 109 mmol/L (98-107); CREATININE 1.07 mg/dL (0.70-1.30); SODIUM 142 mmol/L (136-145)
[~2018-12-13] VITALS: Ht 195.5 cm; Wt 95.3 kg
[~2018-12-13] MED LIST changes: +CIPROFLOXACIN750 MG PO; +TRAMADOL HCL50 MG PO; +XARELTO10 MG PO
--- NOTE | ~2018-12-13 | O ---
[place], [place] OPERATIVE NOTE [id number] UNIT #: [id number] ROOM: DOCTOR: STAR DOBSONCOLTON Corea BIRTHDATE: [birth year] DOS: 12/13/2018 SURGEON: Dr. Graves. ASSISTANTS: 1. Minor Perez, Fellow. 2. Stevie Wooten, PGY2 PREOPERATIVE DIAGNOSES: 1. Gastrocnemius equinus. 2. Diabetic foot ulcer open wound measuring 3.2 x 3 cm. 3. Osteomyelitis of the lesser metatarsals of the right foot. 5. Contracture of the metatarsophalangeal joint in extension with a tight extensor hallucis longus tendon. POSTOPERATIVE DIAGNOSES: 1. Gastrocnemius equinus. 2. Diabetic foot ulcer open wound measuring 3.2 x 3 cm. 3. Osteomyelitis of the lesser metatarsals of the right foot. 5. Contracture of the metatarsophalangeal joint in extension with a tight extensor hallucis longus tendon. PROCEDURES: 1. Endoscopic gastroc recession. 2. Incision and drainage and bone debridement of the lesser metatarsals. 3. Repair of the wound with complex closure. 4. Tenotomy capsulotomy of the first metatarsophalangeal joint of left foot. DETAILS OF PROCEDURE: PROCEDURE #1: The patient was seen in preop holding area and appropriate site marking was performed. He concurred with the perioperative management, the consent and the proposed surgery. He was brought in the OR and placed on well-padded OR table where anesthesia was achieved. Once the anesthesia was achieved, his right foot and leg were prepped and draped in usual sterile fashion. At this time, a mid-thigh tourniquet was used for hemostasis and inflated to 300 mmHg. At this time, a small stab incision was made in the posteromedial aspect of the leg over the gastroc aponeurosis, deepened in the same plane using sharp and blunt dissection avoiding neurovascular structures, carried down to the deep fascial tissue where it was performed from medial and lateral. At this time, an obturator was inserted and a stab incision was made laterally over the tented skin. At this point in time with a small stab incision made laterally, a cannula was inserted and it faced anteriorly. At this point in time, a scope was inserted into the endoscopic gastroc recession system and at that point in time, a triangle blade was used to perform a Josee procedure to increase range of motion of the ankle joint. At this time, the increased range of motion improved very nicely and area was flushed with copious amounts of sterile saline, skin incision was closed with 2-0 nylon. PROCEDURE #2: Incision and bone debridement of the right foot. At this time, [place], [place] OPERATIVE NOTE NAME: DIONY DOBBINS UNIT #: [id number] ROOM: DOCTOR: COLTON GRAVES DPM BIRTHDATE: [birth year] attention was directed to the plantar aspect of the foot where a wound was measured 3.2 x 3 cm. At this time, using a bone forceps and rongeur, the bone was resected from the lesser metatarsals. The bone was aggressively resected, taking all diseased bone at this time. The bone was sent for Gram stain, aerobic, anaerobic, fungal acid fast and it was debrided extensively resecting this bone. The area was flushed with copious amounts of sterile normal saline, 3000 mL bag of saline was used of normal saline. At this point in time, the wound appeared to be much cesspool cleaner and all the soft tissue was sent for Gram stain, aerobic, anaerobic, fungal acid fast as well as a bone and a biopsy of bone. PROCEDURE #3: Repair of wound with complex closure. At this point in time, the wound was completely cut out in a 3:1 incision. The soft tissues were sent for pathology as well as biopsy and culture. At this point in time, the lateral and medial aspects of the flaps were elevated and they were mobilized to the midline using 1-0 nylon. We were able to get the wound primarily closed under direct closure closing this wound very nicely with tight closure. PROCEDURE #4: A 10 blade was used at the dorsal aspect of the first MTP where an EHL and EHB tendon were completely tenotomized. At this time, a capsulotomy was performed at the first metatarsophalangeal joint giving dorsiflexion of the first metatarsophalangeal joint, which was semirigid into neutral position. This was performed as somewhat of a percutaneous procedure to perform a tenotomy and capsulotomy. All the surgical wounds were closed using 2-0 nylon. The surgical wounds were dressed with Betadine-soaked Adaptic, 4 x 4s, Lily and sterile compressive fashion. The tourniquet was released, normal flush present to all digits of the right foot. He tolerated the procedure and anesthesia well and left the OR in with vital signs stable and vascular status intact. COLTON GRAVES DPM CM:OPRECORD:OPERATIVE NOTE 1835 2252 COLTON GRAVES DPM 12/20/18 1258 interface
--- NOTE | ~2018-12-13 | EKG ---
[place], [place] ELECTROCARDIOGRAM REPORT NAME: DIONY DOBBINS UNIT #: [id number] ROOM: DOCTOR: EPIPHANY DRAFT REPORT BIRTHDATE: [birth year] [facility] Test Date: 2018-12-11 Test Time: 14:40:30 Pat Name: DIONY DOBBINS Department: Room: Gender: Mender Hand: : 1960 Requested By: COLTON GRAVES Order Number: [id number] Reading MD: Barry Templeton MD Measurements Intervals [place] Rate: 51 P: 68 [place]: 159 QRS: -45 QRSD: 169 T: 115 QT: 522 QTc: 481 Interpretive Statements Sinus bradycardia Left bundle branch block Baseline wander in lead(s) V2 Compared to ECG 06/21/2018 20:23:14 No significant changes Electronically Signed On 12-13-2018 5:50:54 PDT by Barry Templeton MD CM:EKGRPT:ELECTROCARDIOGRAM REPORT 1440 0550 COLTON GRAVES DPM EPIPHANY DRAFT REPORT COLTON GRAVES DPM
--- NOTE | ~2018-12-13 | WRIGHTHP ---
[place], [place] PATIENT HISTORY AND PHYSICAL EXAM [facility]: [id number] UN[facility] #: [id number] ROOM: DOCTOR: COLTON GRAVES DPM BIRTHDATE: [birth year] DOS: 12/13/2018 LOWER EXTREMITY PHYSICAL EXAMINATION: VASCULAR: He has palpable pedal pulses, 2/4 DP and PT of the right lower extremity. He has some localized edema in the area. NEUROLOGIC: He has complete loss of protective sensation secondary to diabetic peripheral neuropathy. DERMATOLOGIC: He has an open wound that measures 3.2 x 3 cm that travels right down to the bone of the lesser metatarsal in the central portion of his foot distally. MUSCULOSKELETAL: He has a significant gastrocnemius equinus and a tight posterior muscle group, forefoot overload and ulcer of the lesser metatarsal of 2 and 3. ORTHOPEDIC: Exam is consistent with osteomyelitis. Joint contracture of the first metatarsophalangeal joint in extension with a tight tendon of the EHL as well as a contracture and he has flexion contracture of toes 2, 3, 4 and extension contractures of MTPs 2, 3 and 4; all of the right foot. Orthopedic exam shows osteomyelitis and lesser metatarsal of the right foot. COLTON GRAVES DPM CM:HISPHYS:PATIENT HISTORY AND PHYSICAL EXAMINATION [id number] COLTON GRAVES DPM 12/14/18 0057 interface
--- NOTE | ~2018-12-13 | WRIGHTHP ---
[place], [place] PATIENT HISTORY AND PHYSICAL EXAM [id number] UN[facility] #: [id number] ROOM: DOCTOR: COLTON GRAVES DPM BIRTHDATE: [birth year] DOS: 12/13/2018 INDICATION: The patient is seen for followup regarding ulceration consistent with osteomyelitis of his lesser metatarsal 2 and 3 of his right foot. At this time, he is set for surgery today, understands pros, cons, risks and benefits of osteomyelitis of his right foot. He understands the pros, cons, risks and benefits of the surgery and agreed to surgery and the surgery site marking, concur with this, the perioperative management as well as procedure and treatment and the length of time, the treatment will take. With this in mind, he agreed with consent and agreed with the principal surgeries. COLTON GRAVES DPM CM:HISPHYS:PATIENT HISTORY AND PHYSICAL EXAMINATION [id number] COLTON GRAVES DPM 12/14/18 0056 interface
[2018-12-13 10:20] VITALS: BP 136/71
[2018-12-13 12:32] VITALS: BP 124/54
[2018-12-13 12:47] VITALS: BP 135/51
[2018-12-13 13:02] VITALS: BP 135/58
[2018-12-13 13:30] VITALS: BP 135/58
[2018-12-13 13:42] VITALS: BP 135/58
[2018-12-14 14:06] LABS: ACID FAST SPEC PROCESSING Tissue Grinding (.)
[2018-12-14 14:06] LABS: ACID FAST SPEC PROCESSING Tissue Grinding (.)
== END | disposition home or self-care (01) ==
LOC: SDC 12-11 13:15
PROVIDERS: Podiatrist
DX: L97.519 Non-pressure chronic ulcer of other part of right foot with unspecified severity (principal); M86.8X7 Other osteomyelitis, ankle and foot; I10 Essential (primary) hypertension; I25.2 Old myocardial infarction; E11.9 Type 2 diabetes mellitus without complications; Z90.49 Acquired absence of other specified parts of digestive tract; F17.210 Nicotine dependence, cigarettes, uncomplicated; Z95.5 Presence of coronary angioplasty implant and graft; Z83.3 Family history of diabetes mellitus; Z82.49 Family history of ischemic heart disease and other diseases of the circulatory system

== ENCOUNTER 2019-09-01 03:31 | Emergency (ER) | payer OTHER ==
[~2019-09-01] VITALS: Ht 198.1 cm; Wt 99.8 kg
[2019-09-01 05:05] LABS: BASO % 0.2 % (0.0-1.0); EOS # 0.1 10*3/uL (0.0-0.4); EOS % 1.3 % (1.0-4.0); HEMATOCRIT 41.2 % (42.0-52.0); HEMOGLOBIN 13.5 g/dl (14.0-18.0); LYMPH # 1.5 10*3/uL (1.3-4.4); LYMPH % 17.2 % (27.0-41.0); MEAN CELL VOLUME 98.8 fl (80.0-94.0); MEAN CORPUSCULAR HGB 32.4 pg (27.0-31.0); MEAN CORPUSCULAR HGB CONC 32.8 g/dl (33.0-37.0); MEAN PLATELET VOLUME 10.3 fl (9.6-12.3); MONO # 0.7 10*3/uL (0.1-1.0); MONO % 8.2 % (3.0-9.0); NEUT # 6.3 10*3/uL (2.3-7.9); NEUT % 72.9 % (47.0-73.0); PLATELET COUNT AUTOMATED 201 10*3/uL (130-400); RED BLOOD COUNT 4.17 10*6/uL (4.50-5.90); RED CELL DISTRI WIDTH 12.5 % (0-14.5); WHITE BLOOD COUNT 8.7 10*3/uL (4.8-10.8)
[2019-09-01 05:25] LABS: BUN 18 mg/dl (7-24); CHLORIDE 108 mmol/L (98-107); POTASSIUM 4.4 mmol/L (3.5-5.1); SODIUM 140 mmol/L (136-145)
== END 2019-09-01 05:49 | disposition home or self-care (01) ==
LOC: ED 03:31
PROVIDERS: Emergency Medicine Emergency Medical Services
DX: E11.621 Type 2 diabetes mellitus with foot ulcer (principal); L97.519 Non-pressure chronic ulcer of other part of right foot with unspecified severity; I25.10 Atherosclerotic heart disease of native coronary artery without angina pectoris; I10 Essential (primary) hypertension; E78.00 Pure hypercholesterolemia, unspecified; Z79.84 Long term (current) use of oral hypoglycemic drugs; Z79.82 Long term (current) use of aspirin; Z79.899 Other long term (current) drug therapy

== ENCOUNTER 2020-03-03 11:07 | Inpatient (IN) | payer OTHER ==
[~2020-03-03] VITALS: Ht 198.1 cm; Wt 94.5 kg
[2020-03-03 11:12] VITALS: BP 134/61
--- NOTE | 2020-03-03 11:30 | NUR ---
PT REFUSED HOSPITAL GOWN AT THIS TIME
[2020-03-03 11:49] LABS: BASO % 0.4 % (0.0-1.0); EOS # 0.1 10*3/uL (0.0-0.4); HEMATOCRIT 39.6 % (42.0-52.0); LYMPH # 1.8 10*3/uL (1.3-4.4); MEAN CORPUSCULAR HGB 31.7 pg (27.0-31.0); MEAN CORPUSCULAR HGB CONC 32.3 g/dl (33.0-37.0); MEAN PLATELET VOLUME 9.6 fl (9.6-12.3); MONO # 0.8 10*3/uL (0.1-1.0); MONO % 9.8 % (3.0-9.0); NEUT # 5.7 10*3/uL (2.3-7.9); NEUT % 67.6 % (47.0-73.0); PLATELET COUNT AUTOMATED 222 10*3/uL (130-400); RED BLOOD COUNT 4.04 10*6/uL (4.50-5.90); RED CELL DISTRI WIDTH 12.1 % (0-14.5); WHITE BLOOD COUNT 8.4 10*3/uL (4.8-10.8)
--- NOTE | 2020-03-03 12:04 | NUR ---
PHOTOS TAKEN OF RIGHT/LEFT FOOT, WOUD PRESENT ON BOTTOM OF RIGHT FOOT
--- NOTE | 2020-03-03 12:05 | NUR ---
PT RIGHT FOOT BANDAGE APPLIED PER JERRI ZUNIGA SUPERVISOR MILL REQUEST
[2020-03-03 12:06] LABS: ALBUMIN 3.5 gm/dl (3.1-4.5); ALKALINE PHOSPHATASE 111 U/L (45-117); BUN 19 mg/dl (7-24); CHLORIDE 110 mmol/L (98-107); CREATININE 1.21 mg/dL (0.70-1.30); POTASSIUM 3.7 mmol/L (3.5-5.1); SGOT/AST 18 IU/L (3-35); SGPT/ALT 26 U/L (12-78); SODIUM 140 mmol/L (136-145); TOTAL PROTEIN 8.6 gm/dL (6.4-8.2)
--- NOTE | 2020-03-03 13:41 | NUR ---
PT RESTING IN BED WITH EYES CLOSED, NO DISTRESS NOTED, RN WILL CONTINUE TO MONITOR
[2020-03-03 14:08] VITALS: BP 128/64
--- NOTE | 2020-03-03 14:09 | NUR ---
FAXED SBAR TO 4TH FLOOR
--- NOTE | 2020-03-03 14:10 | NUR ---
CALLED [facility] FOR TRANSPORT OF PT
[2020-03-03 14:41] VITALS: BP 108/43
--- NOTE | 2020-03-03 14:47 | NUR ---
MSADMTime: 1430 A 59 year old MALE admitted to 4E under services of NORBERTO MONTOYA DO. Pt. arrived via wheel chair from ER. Chief complaint: DENIES C/O AT PRESENT, HERE FOR DIABETIC FOOT ULCER. [facility] MONDRAGON
--- NOTE | 2020-03-03 15:14 | NUR ---
Patient just to room from ED with nurse doing assessment upon OT arrival. Patient reports that he is having surgery 03/04/20 am on his right foot. Patient is in bed and reports that he is independent currently but agrees that OT could assess 03/04/20 after surgery. Cleo Remy OTR/L
--- NOTE | 2020-03-03 15:15 | NUR ---
PHYSICAL THERAPY Physical therapy order received, chart reviewed. Patient resting in bed at this time, reporting that he is to have surgery in the morning. No PT needs at this time. Will follow and reassess following surgery. Thank you. Rachel Adames,PT,DPT
[2020-03-03 16:00] VITALS: BP 89/75
[2020-03-03 20:00] VITALS: BP 114/42
--- NOTE | 2020-03-03 20:04 | NUR ---
1930 RESTING IN BED ON LEFT SIDE. EYES CLOSED. APPEARS TO BE SLEEPING. CALL LIGHT IN REACH. HEP LOCK INTACT. DRSG D/I R FOOT WITH NO VISIBLE DRNG NOTED. DENIES PAIN OR DISCOMFORT AT THIS TIME. NO DISTRESS NOTED.
[2020-03-04] VITALS (8 sets, daily range): BP systolic 94–137; BP diastolic 42–86
--- NOTE | 2020-03-04 00:12 | NUR ---
UP IN ROOM. REMAINS WITHOUT C/O'S. NPO NOW FOR 02 IN THE AM.
--- NOTE | 2020-03-04 04:17 | NUR ---
RESTING IN BED WITH EYES CLOSED. APPEARS TO BE SLEEPING.
--- NOTE | 2020-03-04 06:06 | NUR ---
REMAINS NPO FOR OR TODAY. HEP LOCK INTACT. DRSG REMAINS D/I R FOOT.
[2020-03-04 06:31] LABS: ALBUMIN 2.9 gm/dl (3.1-4.5); ALKALINE PHOSPHATASE 87 U/L (45-117); BUN 18 mg/dl (7-24); CHLORIDE 115 mmol/L (98-107); POTASSIUM 3.6 mmol/L (3.5-5.1); SGOT/AST 15 IU/L (3-35); SGPT/ALT 23 U/L (12-78); SODIUM 139 mmol/L (136-145); TOTAL PROTEIN 7.1 gm/dL (6.4-8.2)
[2020-03-04 06:32] LABS: BASO % 0.6 % (0.0-1.0); EOS # 0.1 10*3/uL (0.0-0.4); EOS % 2.7 % (1.0-4.0); LYMPH # 0.9 10*3/uL (1.3-4.4); LYMPH % 18.2 % (27.0-41.0); MEAN CELL VOLUME 97.2 fl (80.0-94.0); MEAN CORPUSCULAR HGB 31.9 pg (27.0-31.0); MEAN CORPUSCULAR HGB CONC 32.9 g/dl (33.0-37.0); MEAN PLATELET VOLUME 10.4 fl (9.6-12.3); MONO # 0.6 10*3/uL (0.1-1.0); MONO % 10.8 % (3.0-9.0); NEUT # 3.4 10*3/uL (2.3-7.9); NEUT % 67.5 % (47.0-73.0); PLATELET COUNT AUTOMATED 197 10*3/uL (130-400); WHITE BLOOD COUNT 5.1 10*3/uL (4.8-10.8)
--- NOTE | 2020-03-04 09:00 | NUR ---
Fire Protection Inspector in to talk to patient. Patient states lives at home with girlfriend. There are no steps in the home. Physician: cas [facility]acy: [facility] Home health services: none Patient's level of ADLs: INDEPENDENT Patient has working utilities: all working DME: none Follow-up physician's appointment after d/c: will be made by hospitalist nurse director upon discharge Does patient want to access PORTAL?: no Discharge plan discussed with patient, he states he lives at home with girlfriend, he is independent in adls and ambulation. drives, he states he will return home when discharged. discussed with him if he would need iv antibiotics as an outpatient or possibly a wound vac if he would consider going to a short term nursing home for 24 hour care prior to returning home, also educated him on the services provided by [facility]. he stated he was not going to make any decision now about after care until he was informed of what podiatry was going to do. case management will follow and make any referal needed. ANDREW VALENZUELA
--- NOTE | 2020-03-04 11:15 | NUR ---
PATIENT TAKEN TO SURGERY AT THIS TIME.
--- NOTE | 2020-03-04 11:45 | NUR ---
OT NOTE Occupational therapy order received and chart reviewed. Attempted to see patient at bedside this AM however he was out of the room at surgery. Will check back for completion of an OT evaluation. Thank you. Carolynn Yanez, OTR/L
--- NOTE | 2020-03-04 11:53 | NUR ---
PHYSICAL THERAPY Physical therapy order received and chart reviewed. Attempted to see patient at bedside this morning however he was out of the room at surgery. Will check back for completion of an PT evaluation. Thank you. William Adames PT,DPT
--- NOTE | 2020-03-04 14:00 | NUR ---
PATIENT BACK ON FLOOR AFTER ULTRASOUND. SURGICAL SHOE GIVEN TO PATIENT FOR RT FOOT POST-OP. ICE PACK GIVEN. PILLOW PLACED UNDER RT FOOT FOR ELEVATION. PATIENT DENIES ANY PAIN. CALL LIGHT IS WITHIN REACH.
--- NOTE | 2020-03-04 15:13 | NUR ---
PHYSICAL THERAPY Physical therapy order received and chart reviewed. Pt states he just got back to his room and is eating. Pt states he does not need physical therapy right now. Will attempt to see at a later date. William Hough SPT Rachel Adames PT,DPT
--- NOTE | 2020-03-04 15:18 | NUR ---
OT NOTE Occupational therapy order received, chart reviewed, and attempted to see patient at bedside. Patient was sitting at bedside eating his lunch at this time and declined an OT evaluation. Patient agreeable to be seen tomorrow in AM for OT evaluation. Will check back. Thank you. Carolynn Yanez, OTR/L
--- NOTE | 2020-03-04 20:09 | NUR ---
1930 RESTING IN BED ON RIGHT SIDE. CALL LIGHT IN REACH. HEP LOCK INTACT. NO C/O'S PAIN OR DISCOMFORT VOICED. DRSG D/I R FOOT WITH NO DRNG NOTED.
[2020-03-05] VITALS: BP 142/56
--- NOTE | 2020-03-05 00:07 | NUR ---
RESTING IN BED WITH EYES CLOSED. APPEARS TO BE SLEEPING.
--- NOTE | 2020-03-05 06:06 | NUR ---
SLETP WELL THIS SHIFT. REMAINS WITHOUT C/O'S. HEP LOCK INTACT. DRSG REMAINS D/I R FOOT.
[2020-03-05 06:27] LABS: BUN 14 mg/dl (7-24); CHLORIDE 113 mmol/L (98-107); CREATININE 1.09 mg/dL (0.70-1.30); POTASSIUM 3.8 mmol/L (3.5-5.1); SODIUM 141 mmol/L (136-145)
[2020-03-05 06:33] LABS: BASO % 0.4 % (0.0-1.0); EOS # 0.2 10*3/uL (0.0-0.4); EOS % 3.7 % (1.0-4.0); HEMATOCRIT 36.1 % (42.0-52.0); LYMPH % 21.1 % (27.0-41.0); MEAN CORPUSCULAR HGB 31.4 pg (27.0-31.0); MEAN CORPUSCULAR HGB CONC 32.7 g/dl (33.0-37.0); MEAN PLATELET VOLUME 10.3 fl (9.6-12.3); MONO # 0.5 10*3/uL (0.1-1.0); MONO % 11.9 % (3.0-9.0); NEUT # 2.8 10*3/uL (2.3-7.9); NEUT % 62.7 % (47.0-73.0); PLATELET COUNT AUTOMATED 211 10*3/uL (130-400); RED BLOOD COUNT 3.76 10*6/uL (4.50-5.90); RED CELL DISTRI WIDTH 11.9 % (0-14.5); WHITE BLOOD COUNT 4.5 10*3/uL (4.8-10.8)
[2020-03-05 08:00] VITALS: BP 132/60
--- NOTE | 2020-03-05 08:00 | NUR ---
IN TO ROOM. PT AWAKE, ALERT AND ORIENTED LAYING IN BED. NO STATED COMPLAINTS AT THIS TIME. DENIES ANY PAIN. RESPIRATIONS ARE EASY AND REGULAR AND NO DISTRESS OR SOB NOTED AT THIS TIME. PT ABLE TO REPOSITION SELF AND IS ENCOURAGED TO DO SO. BED IN LOWEST LOCKED POSITION, CALL LIGHT WITHIN REACH. WILL CONTINUE TO MONITOR.
--- NOTE | 2020-03-05 09:00 | NUR ---
case management visits with patient, he stated he would return home when discharged, home needs undecided at this time due to waiting on culture reports. case management will follow
--- NOTE | 2020-03-05 10:30 | NUR ---
PATIENT SLEEPING IN BED. RIGHT FOOT ELEVATED ON BED. NO S/S OF DISTRESS OR SOB NOTED. RESPIRATIONS ARE EASY AND REGULAR ON ROOM AIR. BED IN LOWEST LOCKED POSITION, CALL LIGHT AND BELONGINGS ARE WITHIN REACH. WILL CONTINUE TO MONITOR.
--- NOTE | 2020-03-05 10:55 | NUR ---
PHYSICAL THERAPY PT orders received and chart reviewed. Attempted to see patient for PT eval but floor wet from housekeeping cleaning. Will attempt to evaluate later. William Hough SPT Rachel Adames PT,DPT
--- NOTE | 2020-03-05 10:55 | NUR ---
Occupational Therapy to be attempted at this time but floor was wet and very recently mopped. OTR to attempt at a later time. Cleo Remy OTr/L
[2020-03-05 12:00] VITALS: BP 121/66
--- NOTE | 2020-03-05 13:40 | NUR ---
Occupational Therapy evaluation completed on 4 with full eval to follow. Upon arrival to 4th floor, patient seated in [facility] area with RLE elevated on chair. When asked how patient moved from his room in [facility] to [facility] he reported that he "only put weight on his right heel". Patient was educated in use of wheeled walker and NWB RLE. Patient was also educated in use of non-slip socks for left foot for fall reduction. Patient understands need to use both non-slip socks left and NWB RLE. Nursing clarified that patient is NWB RLE with discharge specialist and also educated patient. NWB RLE put on white board in room and ww placed near bed for patient to reach. Case management informed of need for wheeled walker for +6ft man for d/c as patient does not have a ww at home. No further OT indicated at this time. Patient in agreement. Thank you for this referral. Kelsie Remy OTR/L
--- NOTE | 2020-03-05 13:40 | NUR ---
PHYSICAL THERAPY Physical Therapy evaluation completed on 4th floor with full evaluation to follow. No PT needs at this time, pt modified independent with FWW for ambulation and aware of NWB RLE status. Thank you for this referral. William Hough SPT Rachel Adames PT,DPT
[2020-03-05 16:00] VITALS: BP 139/60
--- NOTE | 2020-03-05 19:19 | NUR ---
RECIEVED REPORT FROM PREVIOUS RN.
[2020-03-05 19:49] VITALS: BP 130/52
--- NOTE | 2020-03-05 19:51 | NUR ---
ASSUMED CARE OF PATIENT. PATIENT IS AAOX3 RESTING IN BED WITH EASY AND REGULAR RESPERS ON ROOM AIR. ASSESSMENT IS COMPLETE WITH NO C/O OR S/S OF DISTRESS NOTED AT THIS TIME. BED IS LOW, LOCKED, AND CALL LIGHT IS WITHIN REACH. WILL CONTNINUE TO MONITOR, SEE INTERVENTIONS.
--- NOTE | 2020-03-05 23:00 | NUR ---
BELONGINGS OBTAINED FROM ER FROM FAMILY. PLACED IN PATIENT ROOM ON SIDE TABLE.
[2020-03-06] VITALS: BP 118/31
--- NOTE | 2020-03-06 | NUR ---
SLEEPING. RESPERS EASY AND REGULAR. CALL LIGHT IS WITHIN REACH.
--- NOTE | 2020-03-06 | NUR ---
PATIENT SLEEPING, RESPERS EASY AND REGULAR. WILL CONTINUE TO MONITOR. CALL LIGHT IS WITHIN REACH.
--- NOTE | 2020-03-06 04:00 | NUR ---
SLEEPING. RESPERS EASY AND REGULAR. CALL LIGHT IS WITHIN REACH.
[2020-03-06 08:00] VITALS: BP 137/62
--- NOTE | 2020-03-06 08:00 | NUR ---
PT SITTING UP AT SIDE OF BED. RESP-EASY AND REGULAR. NO C/O AT THIS TIME. CALL LIGHT IN REACH. SEE SHIFT ASSESSMENT.
--- NOTE | 2020-03-06 09:00 | NUR ---
case management visits with patient, he states he may be discharged to home today, discussed VNA and he declines any home needs, case management will follow
[2020-03-06] MEDS ORDERED: DOXYCYCLINE100 M3 PO ×2 (11:52)
[2020-03-06 12:00] VITALS: BP 132/64
--- NOTE | 2020-03-06 12:55 | NUR ---
Discharge instructions reviewed with patient/family. Patient receptive and verbalizes understanding. Follow-up care arranged. Written instructions given to patient/family. HEPLOCK REMOVED. PICTURES NOT TAKEN. PODIATRY DID DRESSING TODAY AND NOT TO REMOVE. ESCORTED VIA WHEELCHAIR FOR DISCHARGE. STACY GARIBAY R
--- NOTE | 2020-03-06 12:56 | NUR ---
case management received a message patient is to be discharged to home today on oral antibiotics. script received for wheeled walker, faxed to [facility] and educated them patient is being discharged to home today. paperwork for wound vac was given to podiatry resident to take back to podiatry office to be filled out and faxed to [facility]
== END 2020-03-06 12:55 | disposition home or self-care (01) | DRG 344 ==
LOC: ED 11:07 → 4E 13:42 → EDHOLD 13:42 → 4E 14:02
PROVIDERS: Nurse Practitioner Family; Student in an Organized Health Care Education/Training Program; ADMIT Family Medicine; ATTEND Family Medicine
PROC: 0QBN0ZX Excision of Right Metatarsal, Open Approach, Diagnostic (ICD-10-PCS; principal; 2020-03-04)
DX: E11.621 Type 2 diabetes mellitus with foot ulcer (principal); E11.69 Type 2 diabetes mellitus with other specified complication; L97.412 Non-pressure chronic ulcer of right heel and midfoot with fat layer exposed; D53.9 Nutritional anemia, unspecified; D50.9 Iron deficiency anemia, unspecified; E87.8 Other disorders of electrolyte and fluid balance, not elsewhere classified; F17.210 Nicotine dependence, cigarettes, uncomplicated; I44.7 Left bundle-branch block, unspecified; E44.0 Moderate protein-calorie malnutrition; E11.65 Type 2 diabetes mellitus with hyperglycemia; I25.10 Atherosclerotic heart disease of native coronary artery without angina pectoris; E55.9 Vitamin D deficiency, unspecified; I10 Essential (primary) hypertension; K76.0 Fatty (change of) liver, not elsewhere classified; R00.1 Bradycardia, unspecified; E87.5 Hyperkalemia; M86.671 Other chronic osteomyelitis, right ankle and foot; B95.61 Methicillin susceptible Staphylococcus aureus infection as the cause of diseases classified elsewhere; E78.5 Hyperlipidemia, unspecified; L02.611 Cutaneous abscess of right foot; E11.42 Type 2 diabetes mellitus with diabetic polyneuropathy; E53.8 Deficiency of other specified B group vitamins; Z71.6 Tobacco abuse counseling; Z90.49 Acquired absence of other specified parts of digestive tract; Z95.5 Presence of coronary angioplasty implant and graft; Z80.1 Family history of malignant neoplasm of trachea, bronchus and lung; Z83.3 Family history of diabetes mellitus; Z82.49 Family history of ischemic heart disease and other diseases of the circulatory system; Z82.3 Family history of stroke; Z80.7 Family history of other malignant neoplasms of lymphoid, hematopoietic and related tissues; I25.2 Old myocardial infarction; Z79.82 Long term (current) use of aspirin; Z79.899 Other long term (current) drug therapy; Z79.02 Long term (current) use of antithrombotics/antiplatelets; Z68.24 Body mass index [BMI] 24.0-24.9, adult

== ENCOUNTER → 2020-03-12 | Outpatient (CLI) | payer OTHER | END | disposition home or self-care (01) | LOC: COVID19 00:18 | PROVIDERS: ATTEND Podiatrist | DX: Z01.818 Encounter for other preprocedural examination (principal); Z20.828 Contact with and (suspected) exposure to other viral communicable diseases ==

== ENCOUNTER → 2020-03-17 | Day surgery (SDC) | payer OTHER ==
[~2020-03-17] VITALS: Ht 198.1 cm; Wt 96.2 kg
[2020-03-17 11:15] VITALS: BP 151/72
[2020-03-17 12:33] VITALS: BP 112/56
[2020-03-17 12:45] VITALS: BP 113/57
[2020-03-17 13:01] VITALS: BP 126/56
== END | disposition home or self-care (01) ==
LOC: SDC 03-13 02:08
PROVIDERS: ATTEND Podiatrist
DX: S91.309A Unspecified open wound, unspecified foot, initial encounter (principal); L97.514 Non-pressure chronic ulcer of other part of right foot with necrosis of bone; I10 Essential (primary) hypertension; E78.5 Hyperlipidemia, unspecified; M19.90 Unspecified osteoarthritis, unspecified site; I25.10 Atherosclerotic heart disease of native coronary artery without angina pectoris; E11.621 Type 2 diabetes mellitus with foot ulcer; E88.09 Other disorders of plasma-protein metabolism, not elsewhere classified; D50.9 Iron deficiency anemia, unspecified; D53.9 Nutritional anemia, unspecified; R00.1 Bradycardia, unspecified; K76.0 Fatty (change of) liver, not elsewhere classified; G62.9 Polyneuropathy, unspecified; E53.8 Deficiency of other specified B group vitamins; E78.00 Pure hypercholesterolemia, unspecified; Z71.6 Tobacco abuse counseling; E55.9 Vitamin D deficiency, unspecified; M86.9 Osteomyelitis, unspecified; I44.7 Left bundle-branch block, unspecified; F17.210 Nicotine dependence, cigarettes, uncomplicated; Z98.890 Other specified postprocedural states; Z79.899 Other long term (current) drug therapy; Z88.8 Allergy status to other drugs, medicaments and biological substances; Z79.84 Long term (current) use of oral hypoglycemic drugs; X58.XXXA Exposure to other specified factors, initial encounter; Y93.89 Activity, other specified; Y92.89 Other specified places as the place of occurrence of the external cause; Y99.8 Other external cause status

== ENCOUNTER → 2021-03-17 | Outpatient (CLI) | payer OTHER ==
[~2021-03-17] MED LIST changes: +24 HOUR ALLER15.8 ML NAS; +COZAAR50 M1 PO; +GLIPIZIDE10 M2 PO; +NEURONTIN400 MG PO; +OMEPRAZOLE40 MG PO; +TRULICITY1.5 MG/0.5 SC
== END | disposition home or self-care (01) ==
LOC: CARD 00:08
PROVIDERS: ATTEND Internal Medicine Cardiovascular Disease
DX: R94.31 Abnormal electrocardiogram [ECG] [EKG] (principal); I44.7 Left bundle-branch block, unspecified

== ENCOUNTER → 2021-04-08 | Day surgery (SDC) | payer OTHER ==
[2021-04-03 14:55] VITALS: BP 118/57
[~2021-04-08] VITALS: Ht 198.1 cm; Wt 99.3 kg
[~2021-04-08] MED LIST changes: +DOXYCYCLINE HY100 M3 PO
[2021-04-08 08:11] VITALS: BP 161/79
[2021-04-08 10:31] VITALS: BP 145/70
[2021-04-08 10:45] VITALS: BP 130/51
[2021-04-08 10:58] VITALS: BP 135/57
[2021-04-08 11:15] VITALS: BP 136/49
[2021-04-08 11:30] VITALS: BP 136/60
[2021-04-09 11:07] LABS: ACID FAST SPEC PROCESSING Tissue Grinding (.)
== END | disposition home or self-care (01) ==
LOC: SDC 03-13 14:00
PROVIDERS: ATTEND Podiatrist
DX: M86.671 Other chronic osteomyelitis, right ankle and foot (principal); M19.071 Primary osteoarthritis, right ankle and foot; M24.574 Contracture, right foot; I25.10 Atherosclerotic heart disease of native coronary artery without angina pectoris; I10 Essential (primary) hypertension; E11.9 Type 2 diabetes mellitus without complications; I25.2 Old myocardial infarction; E78.00 Pure hypercholesterolemia, unspecified; K21.9 Gastro-esophageal reflux disease without esophagitis; Z79.899 Other long term (current) drug therapy; Z20.822 Contact with and (suspected) exposure to COVID-19

== ENCOUNTER → 2021-06-17 | Day surgery (SDC) | payer OTHER ==
[2021-06-12 14:16] VITALS: BP 120/71
[~2021-06-17] VITALS: Ht 198.1 cm; Wt 93.0 kg
[2021-06-17 06:53] VITALS: BP 133/54
[2021-06-17 09:27] VITALS: BP 88/43
[2021-06-17 09:42] VITALS: BP 96/45
[2021-06-17 09:57] VITALS: BP 125/93
[2021-06-18 11:07] LABS: ACID FAST SPEC PROCESSING Tissue Grinding (.)
[2021-06-18 11:07] LABS: ACID FAST SPEC PROCESSING Tissue Grinding (.)
[2021-06-18 11:07] LABS: ACID FAST SPEC PROCESSING Tissue Grinding (.)
== END | disposition home or self-care (01) ==
LOC: SDC 06-12 14:00
PROVIDERS: ATTEND Podiatrist
DX: T84.428A Displacement of other internal orthopedic devices, implants and grafts, initial encounter (principal); T81.31XA Disruption of external operation (surgical) wound, not elsewhere classified, initial encounter; M19.079 Primary osteoarthritis, unspecified ankle and foot; M86.8X7 Other osteomyelitis, ankle and foot; Z20.822 Contact with and (suspected) exposure to COVID-19; Y82.8 Other medical devices associated with adverse incidents

== ENCOUNTER 2021-06-19 17:46 | Emergency (ER) | payer OTHER ==
[~2021-06-19] VITALS: Ht 175.2 cm; Wt 86.2 kg
[2021-06-19 18:01] LABS: BASO % 0.5 % (0.0-1.0); EOS # 0.1 10*3/uL (0.0-0.4); EOS % 0.7 % (1.0-4.0); HEMATOCRIT 35.7 % (42.0-52.0); LYMPH # 1.1 10*3/uL (1.3-4.4); LYMPH % 13.8 % (27.0-41.0); MEAN CORPUSCULAR HGB 32.1 pg (27.0-31.0); MEAN CORPUSCULAR HGB CONC 33.1 g/dl (33.0-37.0); MEAN PLATELET VOLUME 10.1 fl (9.6-12.3); MONO # 0.7 10*3/uL (0.1-1.0); MONO % 8.8 % (3.0-9.0); NEUT # 6.2 10*3/uL (2.3-7.9); PLATELET COUNT AUTOMATED 185 10*3/uL (130-400); RED BLOOD COUNT 3.68 10*6/uL (4.50-5.90); RED CELL DISTRI WIDTH 13.1 % (0-14.5); WHITE BLOOD COUNT 8.2 10*3/uL (4.8-10.8)
[2021-06-19 18:12] LABS: ACT PARTIAL THROMBO TIME 25.9 SECONDS (20.0-32.1)
[2021-06-19 18:20] LABS: ALKALINE PHOSPHATASE 108 U/L (45-117); BUN 15 mg/dl (7-24); CHLORIDE 103 mmol/L (98-107); CREATININE 1.18 mg/dL (0.70-1.30); SGOT/AST 30 IU/L (3-35); SGPT/ALT 35 U/L (12-78); SODIUM 136 mmol/L (136-145); TOTAL PROTEIN 7.4 gm/dL (6.4-8.2)
== END 2021-06-19 22:04 | disposition left against medical advice (07) ==
LOC: ED 17:46
PROVIDERS: Family Medicine
DX: R25.1 Tremor, unspecified (principal); I25.10 Atherosclerotic heart disease of native coronary artery without angina pectoris; I10 Essential (primary) hypertension; E11.9 Type 2 diabetes mellitus without complications; I25.2 Old myocardial infarction; E78.00 Pure hypercholesterolemia, unspecified; K21.9 Gastro-esophageal reflux disease without esophagitis; Z79.899 Other long term (current) drug therapy; Z79.82 Long term (current) use of aspirin; Z87.891 Personal history of nicotine dependence

== ENCOUNTER 2023-05-28 09:21 | Emergency (ER) | payer MEDICAID ==
[~2023-05-28] VITALS: Wt 98.4 kg
== END 2023-05-28 10:19 | disposition home or self-care (01) ==
LOC: ED 09:21
DX: B34.9 Viral infection, unspecified (principal); I25.10 Atherosclerotic heart disease of native coronary artery without angina pectoris; I10 Essential (primary) hypertension; E11.9 Type 2 diabetes mellitus without complications; I25.2 Old myocardial infarction; E78.00 Pure hypercholesterolemia, unspecified; K21.9 Gastro-esophageal reflux disease without esophagitis; Z90.49 Acquired absence of other specified parts of digestive tract; Z95.5 Presence of coronary angioplasty implant and graft; Z98.890 Other specified postprocedural states; F17.200 Nicotine dependence, unspecified, uncomplicated

== ENCOUNTER 2023-11-11 22:40 | Emergency (ER) | payer MEDICAID ==
[~2023-11-11] VITALS: Ht 198.1 cm; Wt 88.5 kg
[2023-11-11] MEDS ORDERED: VIBRAMYCIN100 MG PO (22:54)
== END 2023-11-11 23:05 | disposition home or self-care (01) ==
LOC: ED 22:40
DX: L03.115 Cellulitis of right lower limb (principal); I10 Essential (primary) hypertension; I25.10 Atherosclerotic heart disease of native coronary artery without angina pectoris; E11.9 Type 2 diabetes mellitus without complications; I25.2 Old myocardial infarction; E78.00 Pure hypercholesterolemia, unspecified; K21.9 Gastro-esophageal reflux disease without esophagitis; F17.200 Nicotine dependence, unspecified, uncomplicated; Z90.49 Acquired absence of other specified parts of digestive tract; Z95.5 Presence of coronary angioplasty implant and graft; Z98.890 Other specified postprocedural states